=== PATIENT | male | born 1985 | race Caucasian/White ===

== ENCOUNTER 2022-06-15 12:45 | Observation (INO) | payer MEDICAID, SELFPAY ==
[2022-06-15 12:46] VITALS: BP 147/96; PULSE 106; RESP 18; TEMP 36.3; O2SAT 94
--- NOTE | 2022-06-15 13:14 | EX.ED.SAOD ---
HPI History of Present Illness Chief Complaint: Substance Abuse Informant: patient Onset/Context/Timing Onset: Days (2) Context: Gradual Onset Timing: Continuous Quality: Shaky, anxious Location: Generalized Worsened by: Nothing Relieved by: Nothing Associated Symptoms Associated Symptoms: Positive for vomiting*; Negative for diarrhea*, fever*, rash*, seizure, tremor, palpatations, change in mental status, suicidal ideation or homicidal ideation Narrative Narrative: Patient presents requesting detox from heroin and methamphetamines. Patient states he has been using daily for a few weeks until a day and a half ago. Patient states he was having some nausea and vomiting after he had stopped using the heroin. Patient states he was injecting heroin and smoked some ice. Patient denies any seizures. Patient states he feels little shaky. Patient denies any fevers or chills. Patient denies any suicidal or homicidal ideations. Patient states he has been through detox in [place] in 2012. [facility] Medical History (Updated 06/15/22 @ 13:33 by Olivia Infante) Multiple substance abuse Medical History no medical history no medical history Home Medications buprenorphine 100 mg/0.5 mL solution,exten.rel.subcutaneous syringe (Sublocade) 100 mg subcut 06/15/22 [History Last Taken Unknown] clonidine HCl 0.1 mg tablet 0.1 mg PO TID PRN Anxiety 06/15/22 [History Last Taken Unknown] venlafaxine 150 mg capsule,extended release 24 hr 150 mg PO DAILY 06/15/22 [History Last Taken Unknown] Allergy/AdvReac Type Severity Reaction Status Date / Time No Known Allergies Allergy Verified 06/15/22 12:48 Surgical History (Updated 06/15/22 @ 13:[address] Elian Dickey MD) H/O inguinal hernia repair Surgical History no surgical history no surgical history Social History (Updated 06/15/22 @ 13:[address] Escobar Ramachandran DO) Smoking Status: Current every day smoker tobacco type: cigarettes substance use type: crack/cocaine, heroin and amphetamines ROS ROS ED Constitutional Constitutional ED: Denies chills or fever(s) Eyes Eyes: Denies blurry vision or change in vision ENT ENT ED: Denies rhinorrhea or sore throat Cardiovascular Cardiovascular: Denies chest pain or palpitations Respiratory/Chest Respiratory/Chest: Denies cough or dyspnea Gastrointestinal Gastrointestinal: Reports nausea and vomiting Genitourinary Genitourinary ED: Denies dysuria or hematuria Musculoskeletal Musculoskeletal: Denies back pain or neck pain Integumentary Denies abscess or rash Neurologic Neurologic: Denies headache(s) or weakness Allergic/Immunologic Allergic/Immunologic ED: Denies mouth swelling or urticaria EXAM Physical Exam Const Vital Signs: 06/15/22 12:46 Temperature 97.4 F L Temperature Source Temporal Pulse Rate 106 H Respiratory Rate 18 Blood Pressure 147/96 H Blood Pressure Mean 113 Pulse Ox 94 Oxygen Delivery Method Room Air Positive well nourished and well developed General Appearance ED: well developed and NAD HEENT Reports moist mucous membranes Neck supple and no JVD Resp normal respiratory effort and clear to auscultation bilaterally Cardio regular rate, regular rhythm and no murmurs GI normal to inspection, nondistended, normoactive bowel sounds and non-tender Palpation: soft Extremity normal to inspection General Extremety ED: Negative for edema or tenderness General Extremity: Negative for edema Neuro oriented x3, CN's II-XII intact bilaterally and no sensory deficits noted Sensorium / Orientation: alert Motor Exam: strength 5/5 throughout Psych mental status grossly normal Mood & Affect: anxious Skin no rashes or lesions noted MDM MDM MDM Narrative Medical decision making narrative: Differential diagnosis includes opiate withdrawal, polysubstance abuse, and amphetamine withdrawal. Basic labs will be obtained. CBC will be obtained to assess for leukocytosis and anemia. Basic metabolic profile will be obtained to assess for electrolyte abnormality and renal function. Urine drug screen will be obtained to assess for polysubstance abuse. Serum alcohol level will be obtained to assess for alcohol intoxication. Case was discussed with the hospitalist. He will admit the patient to his service. Patient understood and was agreeable with the plan. All questions were answered. Management Discussion w/another healthcare provider: Hospitalist (Dr. Dickey) Discharge Plan Dx/Rx/DC Orders Clinical Impression: Opiate withdrawal, Substance abuse Disposition Disposition: Acute Care Hospital [facility]
--- NOTE | 2022-06-15 13:39 | PCM.HP.STD ---
HPI - General General Date of Admission: 06/15/22 HPI Narrative CHRISTIAN HALL, is a 36 M who presents to the hospital requesting detox from heroin, cocaine, and meth. His last use was a day and a half ago and he relapsed after 10 months of being clean for those months were while he was in detention in the last 6 were while he was at a half-way house. He started using again 2-1/2 weeks ago because he lost his job. He does see an outpatient counselor for his drug use and that is who recommended he come in here for detox. [facility] Medical History (Updated 06/15/22 @ 13:33 by Olivia Infante) Multiple substance abuse Medical History no medical history Home Medications buprenorphine 100 mg/0.5 mL solution,exten.rel.subcutaneous syringe (Sublocade) 100 mg subcut 06/15/22 [History Last Taken Unknown] clonidine HCl 0.1 mg tablet 0.1 mg PO TID PRN Anxiety 06/15/22 [History Last Taken Unknown] venlafaxine 150 mg capsule,extended release 24 hr 150 mg PO DAILY 06/15/22 [History Last Taken Unknown] Allergy/AdvReac Type Severity Reaction Status Date / Time No Known Allergies Allergy Verified 06/15/22 12:48 other (His mother when he was young and he is estranged from the rest of his family) Surgical History (Updated 06/15/22 @ 13:[address] Elian Dickey MD) H/O inguinal hernia repair Surgical History no surgical history Social History (Updated 06/15/22 @ 13:[address] Escobar Ramachandran, ) Smoking Status: Current every day smoker tobacco type: cigarettes substance use type: crack/cocaine, heroin and amphetamines ROS Constitutional Constitutional: Denies chills, fatigue, fever(s) or malaise Eyes Eyes: Denies blurry vision ENT HEENT: Denies headache(s) or nasal discharge Cardiovascular Cardiovascular: Denies chest pain, dyspnea on exertion or syncope Respiratory/Chest Respiratory/Chest: Denies cough, shortness of breath at rest or shortness of breath with exertion Gastrointestinal Gastrointestinal: Reports nausea and vomiting; Denies constipation or diarrhea Genitourinary Genitourinary: Denies dysuria Neurologic Neurologic: Denies focal weakness, numbness or tremor(s) Psychiatric Psychiatric: Reports anxiety; Denies depression Vital Signs Vital Signs Vital Signs: 06/15/22 12:46 Temperature 97.4 F L Temperature Source Temporal Pulse Rate 106 H Respiratory Rate 18 Blood Pressure 147/96 H Blood Pressure Mean 113 Pulse Ox 94 Oxygen Delivery Method Room Air Physical Exam Narrative General: Alert, Oriented x3, Cooperative, No apparent distress HEENT: Atraumatic, PERRLA, EOMI, Normocephalic Oral: Moist Mucosa Neck: Supple, No JVD Lungs: Clear to auscultation, Normal air movement, No rhonchi, No wheeze, No rales Cardiovascular: Tachycardic, Regular Rhythm, Normal S1, Normal S2, No murmurs Abdomen: Soft, Non Tender, Non-Distended, No Hepato-splenomegaly Extremities: No edema, Capillary Refill Less than 3 Seconds Skin: No rashes, No breakdown Musculoskeletal: No Tenderness to Palpation of Joints or Extremities Neurological: Cranial nerves II-XII grossly intact, Motor Exam 5/5 strength throughout, Sensory exam intact to light touch and pain Psych/Mental Status: Anxious, restless, cannot sit still Assessment & Plan Assessment/Plan (1) Opiate withdrawal: (2) Substance abuse: PLAN: Plan 1. Opiate withdrawal/polysubstance abuse/tobacco abuse/anxiety/depression ? We will continue with the opiate withdrawal protocol ? We will obtain a CMP to see if any further investigation is warranted ? We will continue with his home Effexor ? We will have him see 180 to establish outpatient care ? Discussed tobacco cessation, will provide a nicotine patch DVT: Ambulation Charges/Coding Visit Charges Inpatient E&M: 81282 Init Hosp L2
--- NOTE | 2022-06-15 13:54 | NURSING ---
communicated with ER charge nurse via backline to see if were sending any labs as none pending, noted ER physician's and hospitalist notes. ER Charge nurse replied hospitalist did not want any.
--- NOTE | 2022-06-15 14:01 | CM.ED ---
Social Work SW introduced self and role. Patient reports he would like to complete detox. Patient reports he had been clean for 8 months but relapsed. Pt reports his counselor from [facility] in [place] sent him here. Hollie, [facility] coordinator, notified that patient to be admitted to the floor. Tahira Weston MANAGER BENEFIT, [employer]
[2022-06-15 14:41] VITALS: BP 125/59; PULSE 100; RESP 18; TEMP 36.4; O2SAT 97
[2022-06-15 14:42] VITALS: BMI 32.5
[2022-06-15 15:14] VITALS: BMI 32.5
[2022-06-15] MEDS: Methocarbamol 750 MG Tablet 1500 MG PO (15:30)
[2022-06-15] MEDS: Ondansetron 8 MG Tablet PO (15:30)
[2022-06-15] MEDS: Gabapentin 300 MG Capsule PO (15:30)
[2022-06-15] MEDS: Buprenorphine HCl 2 MG TAB.SUBL SL ×2 (15:31→23:51)
[2022-06-15 23:44] VITALS: BP 109/69; PULSE 60; RESP 16; TEMP 36.3; O2SAT 97
[2022-06-16 02:38] VITALS: BP 111/65; PULSE 62; RESP 16; TEMP 36.3; O2SAT 97
[2022-06-16 06:33] VITALS: BP 113/67; PULSE 66; O2SAT 99
[2022-06-16] MEDS: Buprenorphine HCl 2 MG TAB.SUBL SL ×3 (06:34→23:02)
[2022-06-16] MEDS: cloNIDine HCl 0.1 MG Tablet PO ×2 (06:35→20:20)
[2022-06-16 08:10] LABS: ALB/GLOB Ratio 0.8 RATIO (0.9-2.4); AST(SGOT) 51 U/L (15-37); Alanine Aminotransfer ALT/SGPT 60 U/L (16-61); Albumin, Serum 2.9 g/dL (3.2-5.0); Alkaline Phosphatase 61 U/L (45-117); Anion Gap 5 (5-15); BUN 13 mg/dL (7-18); BUN/Creat Ratio 18.3 RATIO (10-20); Calcium,Total 8.8 mg/dL (8.5-10.1); Chloride 110 mmol/L (98-107); Creatinine, Serum 0.71 mg/dL (0.70-1.30); EST Glomerular Filtration Rate 132 mL/min (>60); Est Glom Filt Rate - Afr Amer 160 mL/min (>60); Estimated Creatinine Clearance 142.45 ml/min; Globulin 3.5 g/dL (2.2-4.2); Glucose 92 mg/dL (74-106); Potassium 4.2 mmol/L (3.5-5.1); Protein, Total 6.4 g/dL (6.4-8.2); Sodium Level 139 mmol/L (136-145)
[2022-06-16 08:38] VITALS: BP 120/77; PULSE 68; RESP 18; TEMP 36.4; O2SAT 98
[2022-06-16] MEDS: Venlafaxine XR 150 MG Capsule PO (09:35)
--- NOTE | 2022-06-16 11:49 | PN.HOSP_ITS ---
Reason for Visit Reason for Visit: Diagnoses Opioid use, unspecified with withdrawal (06/15/22) Other psychoactive substance abuse, uncomplicated (06/15/22) Subjective Subjective Patient was seen and examined today, he was admitted yesterday for opiate withdrawal. Patient has no complaints of any muscle aches or severe anxiety today. He states he is a little bit jittery. Objective Data Objective Data Vital Signs: Vital Signs Temp Pulse Resp BP Pulse Ox O2 Del Method 97.6 F L 68 18 120/77 98 Room Air 06/16/22 08:38 06/16/22 08:38 06/16/22 08:38 06/16/22 08:38 06/16/22 08:38 06/16/22 08:38 Oxygen Delivery Method Room Air Weight: 99.79 kg Body Mass Index (BMI) 32.5 Intake & Output: Intake and Output for Last 24 Hours 06/14/22 06/15/22 06/16/22 23:59 23:59 23:59 Intake Total 500 / 500 Balance 500 / 500 Lab / Micro Data Result Diagrams: 06/16/22 06:15 Labs: Laboratory Results - last 24 hr 06/16/22 06:15: Sodium 139, Potassium 4.2, Chloride 110 H, Carbon Dioxide 24.0, Anion Gap 5, BUN 13, Creatinine 0.71, Estim Creat Clear Calc 142.45, Est GFR (MDRD) Af Amer 160, Est GFR (MDRD) Non-Af 132, BUN/Creatinine Ratio 18.3, Glucose 92, Calcium 8.8, Total Bilirubin 0.20, AST 51 H, ALT 60, Alkaline Phosphatase 61, Total Protein 6.4, Albumin 2.9 L, Globulin 3.5, Albumin/Globulin Ratio 0.8 L Physical Exam Const alert, oriented x3, no apparent distress and average body habitus General Appearance: cooperative, well kempt and well developed Orientation / Consciousness: awake, oriented to person, oriented to place and oriented to time HEENT normocephalic, head/scalp atraumatic and moist oral mucous membranes Eyes PERRL, EOMs intact bilaterally and conjunctivae normal Neck supple, no JVD, thyroid normal and no carotid bruits General: trachea midline Resp normal respiratory effort, no retractions, no use of accessory muscles and clear to auscultation bilaterally Auscultation: Negative for rales, rhonchi or wheezes Cardio regular rate, regular rhythm, S1 normal heart sound, S2 normal heart sound, no murmurs, no rub and no gallops GI normal to inspection, nondistended, normoactive bowel sounds, soft to palpation, non-tender and non-distended Extremity no clubbing, cyanosis or edema Skin no rashes or lesions noted General Skin Exam: no breakdown Neuro oriented x3, CN's II-XII intact bilaterally, moves all extremities, no focal motor deficits and no sensory deficits noted Sensorium / Orientation: awake and alert Speech: speech normal Psych affect normal Assessment & Plan Assessment/Plan (1) Opiate withdrawal: PLAN: Plan 1. 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
--- NOTE | 2022-06-16 14:36 | ADDICTION ---
This medical technical writer met with PT to conduct ASAM, MSE, AUDIT assessments and to plan for d/c. PT A+Ox4 and participated actively. All assessments completed and placed in PT's chart. PT plans to f/u with [facility] for follow-up outtreatment services. PT did not indicate a need for transportation post d/c from [facility].
[2022-06-16 14:38] VITALS: BP 114/72; PULSE 68; RESP 16; TEMP 36.1; O2SAT 98
[2022-06-16 20:13] VITALS: BP 141/83; PULSE 99; RESP 18; TEMP 36.6; O2SAT 99
[2022-06-17 02:53] VITALS: BP 117/74; PULSE 60; RESP 18; TEMP 36.6; O2SAT 98
[2022-06-17] MEDS: Methocarbamol 750 MG Tablet 1500 MG PO ×2 (02:59→17:33)
[2022-06-17] MEDS: Dicyclomine 10 MG Capsule 20 MG PO (02:59)
[2022-06-17] MEDS: Ondansetron 8 MG Tablet PO (03:00)
[2022-06-17] MEDS: Buprenorphine HCl 2 MG TAB.SUBL SL ×2 (06:26→15:12)
[2022-06-17 08:45] VITALS: BP 128/72; PULSE 64; RESP 18; TEMP 36.7; O2SAT 99
[2022-06-17] MEDS: Venlafaxine XR 150 MG Capsule PO (10:16)
[2022-06-17] MEDS: cloNIDine HCl 0.1 MG Tablet PO (13:28)
--- NOTE | 2022-06-17 13:47 | PN.HOSP_ITS ---
Reason for Visit Reason for Visit: Diagnoses Opioid use, unspecified with withdrawal (06/15/22) Other psychoactive substance abuse, uncomplicated (06/15/22) Subjective Subjective Patient was seen and examined today, he states he is going to do an outpatient detox program. Patient complains of some slight nervousness but nothing major. Objective Data Objective Data Vital Signs: Vital Signs Temp Pulse Resp BP Pulse Ox O2 Del Method 98.0 F 64 18 128/72 H 99 Room Air 06/17/22 08:45 06/17/22 08:45 06/17/22 08:45 06/17/22 08:45 06/17/22 08:45 06/17/22 08:45 Oxygen Delivery Method Room Air Weight: 99.79 kg Body Mass Index (BMI) 32.5 Intake & Output: Intake and Output for Last 24 Hours 06/15/22 06/16/22 06/17/22 23:59 23:59 23:59 Intake Total 1942039 600 / 600 Balance 1942039 600 / 600 Lab / Micro Data Result Diagrams: 06/16/22 06:15 Physical Exam Const alert, oriented x3, no apparent distress and average body habitus General Appearance: cooperative, well kempt and well developed Orientation / Consciousness: awake, oriented to person, oriented to place and oriented to time HEENT normocephalic and moist oral mucous membranes Eyes PERRL, EOMs intact bilaterally and conjunctivae normal Neck supple, no JVD, thyroid normal and no carotid bruits General: trachea midline Resp normal respiratory effort, no retractions, no use of accessory muscles and clear to auscultation bilaterally Auscultation: Negative for rales, rhonchi or wheezes Cardio regular rate, regular rhythm, S1 normal heart sound, S2 normal heart sound, no murmurs, no rub and no gallops GI normal to inspection, nondistended, normoactive bowel sounds, soft to palpation, non-tender and non-distended Extremity no clubbing, cyanosis or edema Skin no rashes or lesions noted General Skin Exam: no breakdown Neuro oriented x3, CN's II-XII intact bilaterally, moves all extremities, no focal motor deficits and no sensory deficits noted Sensorium / Orientation: awake, alert, oriented to person, oriented to place and oriented to time Speech: speech normal Psych Psych Narrative: Patient has flat affect Assessment & Plan Assessment/Plan (1) Opiate withdrawal: PLAN: Plan 1. Acute opiate withdrawal-patient will continue on his present medications, patient is minimally symptomatic from opiate withdrawal #2 polysubstance abuse-complicates care, medical course, management, and recovery #3 chronic depression-patient will remain on his Effexor Total clinical time spent by myself addressing the patient's medical issues, rev iewing all his data, and collaborating with patient's care team: 25 minutes Charges/Coding Visit Charges Inpatient E&M: 10436 Subs Hosp L1
[2022-06-17 14:32] VITALS: BP 115/54; PULSE 63; RESP 18; TEMP 36.6; O2SAT 95
[2022-06-17] MEDS: Gabapentin 300 MG Capsule PO (17:33)
[2022-06-17 20:47] VITALS: BP 146/85; PULSE 69; RESP 18; TEMP 36.6; O2SAT 97
[2022-06-18 02:37] VITALS: BP 130/85; PULSE 61; RESP 18; TEMP 36.4; O2SAT 96
[2022-06-18] MEDS: Buprenorphine HCl 2 MG TAB.SUBL SL (02:44)
[2022-06-18] MEDS: cloNIDine HCl 0.1 MG Tablet PO ×3 (02:44→20:15)
[2022-06-18 08:40] VITALS: BP 152/96; PULSE 79; RESP 18; TEMP 37.2; O2SAT 100
[2022-06-18] MEDS: Venlafaxine XR 150 MG Capsule PO (08:40)
[2022-06-18] MEDS: Gabapentin 300 MG Capsule PO (08:40)
--- NOTE | 2022-06-18 11:36 | NURSING ---
Clonidine pulled from accu dose by this nurse. Computer in room would not let this nurse give medication. container washer came in room and tried to give it with me and it still wouldnt accept my fingerprint. Rozina samaniego RN gave medication under her name.
--- NOTE | 2022-06-18 12:59 | PCM.PN.HOSP ---
Reason for Visit Reason for Visit: Diagnoses Opioid use, unspecified with withdrawal (06/15/22) Other psychoactive substance abuse, uncomplicated (06/15/22) Subjective Subjective Patient was seen and examined today, he does not appear to be nervous or tremorous. He tells this examiner that he is going to do an outpatient detox program when he is released from the hospital. Objective Data Objective Data Vital Signs: Vital Signs Temp Pulse Resp BP Pulse Ox O2 Del Method 98.9 F 79 18 152/96 H 100 Room Air 06/18/22 08:40 06/18/22 08:40 06/18/22 08:40 06/18/22 08:40 06/18/22 08:40 06/18/22 08:40 Oxygen Delivery Method Room Air Weight: 99.79 kg Body Mass Index (BMI) 32.5 Intake & Output: Intake and Output for Last 24 Hours 06/16/22 06/17/22 06/18/22 23:59 23:59 23:59 Intake Total 1939 1200 / 1700 500 / 500 Balance 1939 1200 / 1700 500 / 500 Lab / Micro Data Result Diagrams: 06/16/22 06:15 Physical Exam Narrative alert, oriented x3, no apparent distress and average body habitus General Appearance: cooperative, well kempt and well developed Orientation / Consciousness: awake, oriented to person, oriented to place and oriented to time HEENT normocephalic and moist oral mucous membranes Eyes PERRL, EOMs intact bilaterally and conjunctivae normal Neck supple, no JVD, thyroid normal and no carotid bruits General: trachea midline Resp normal respiratory effort, no retractions, no use of accessory muscles and clear to auscultation bilaterally Auscultation: Negative for rales, rhonchi or wheezes Cardio regular rate, regular rhythm, S1 normal heart sound, S2 normal heart sound, no murmurs, no rub and no gallops GI normal to inspection, nondistended, normoactive bowel sounds, soft to palpation, non-tender and non-distended Extremity no clubbing, cyanosis or edema Skin no rashes or lesions noted General Skin Exam: no breakdown Neuro oriented x3, CN's II-XII intact bilaterally, moves all extremities, no focal motor deficits and no sensory deficits noted Sensorium / Orientation: awake, alert, oriented to person, oriented to place and oriented to time Speech: speech normal Psych Psych Narrative: Patient has flat affect Assessment & Plan Assessment/Plan (1) Opiate withdrawal: PLAN: Plan 1. Acute opiate withdrawal-patient will continue on his present medications, patient is minimally symptomatic from opiate withdrawal, there may be a possibility the patient could be discharged tomorrow to follow-up with outpatient detox services. #2 polysubstance abuse-complicates care, medical course, management, and recovery #3 chronic depression-patient will remain on his Effexor Total clinical time spent by myself addressing the patient's medical issues, reviewing all his data, and collaborating with patient's care team: 25 minutes Charges/Coding Visit Charges Inpatient E&M: 56339 Subs Hosp L1
[2022-06-18 15:00] VITALS: BP 127/86; PULSE 69; RESP 18; TEMP 36.6; O2SAT 98
[2022-06-18 20:20] VITALS: BP 126/80; PULSE 67; RESP 16; TEMP 36.8; O2SAT 99
[2022-06-19 05:20] VITALS: BP 122/76; PULSE 62; RESP 16; TEMP 36.5; O2SAT 94
[2022-06-19 08:35] VITALS: BP 113/80; PULSE 86; RESP 18; TEMP 36.4; O2SAT 99
[2022-06-19] MEDS: Venlafaxine XR 150 MG Capsule PO (08:38)
[2022-06-19] MEDS: Gabapentin 300 MG Capsule PO (08:38)
--- NOTE | 2022-06-19 10:02 | PCM.DC ---
Discharge Instructions Diet Discharge Diet: No restrictions Follow Up Care Test Results: Test results from this visit will be discussed in further detail at your follow-up appointment, if applicable. Discharge Plan Admission Admit Date/Time: 06/15/22 13:38 Primary Reason for Your Visit: opiate withdrawal Attending Provider: Escobar Avila Primary Care Provider: Care Physician,No Primary Consulting Providers: Elian Dickey Mark Instructions Additional Instructions / Restrictions: Follow up with [facility] this week. Discharge Orders/Prescriptions Prescriptions: Continued clonidine HCl 0.1 mg tablet 0.1 mg PO TID PRN (Reason: Anxiety) Label Comments: TAKE 1 TABLET BY MOUTH THREE TIMES DAILY NEEDED venlafaxine 150 mg capsule,extended release 24hr 150 mg PO DAILY Label Comments: TAKE 1 CAPSULE BY MOUTH EVERY DAY Sublocade 100 mg/0.5 mL solution, extended rel syringe 100 mg SUBCUT Label Comments: Inject 1 syringe subcutaneously single dose Given per Vaibhav Shah CNP in [facility] Lot #[id number] Exp 03/31 Referrals / Follow Up: Care Physician,No Primary [Primary Care Provider] - NOT,DEFINED [Non-Staff] - Disposition Disposition (needs filled in before D/C Order can be placed): Home, Self Care
--- NOTE | 2022-06-19 10:05 | DS.PCM_ITS ---
Providers Date of Admission: 06/15/22 Primary Care Physician: Primary Care Phys Reason For Visit: OPIATE DETOX Diagnosis Discharge Diagnosis (1) Opiate withdrawal: Status: Acute Code(s): F11.93 - Opioid use, unspecified with withdrawal Medications at Discharge Home Medications buprenorphine 100 mg/0.5 mL solution,exten.rel.subcutaneous syringe (Sublocade) 100 mg subcut 06/15/22 clonidine HCl 0.1 mg tablet 0.1 mg PO TID PRN Anxiety 06/15/22 venlafaxine 150 mg capsule,extended release 24 hr 150 mg PO DAILY Mood Stabilizer 06/15/22 Hospital Course Operations None Procedures None Summary of Care Provided Hospital Course: This is a 36-year-old male presenting with acute opiate withdrawal. Patient does take Sublocade, which is verified on [facility]. He takes that for opiate withdrawal. Patient presented here seeking detox treatment for heroin, cocaine and methamphetamines. Patient was on a buprenorphine taper which he completed on the . Overnight last night, patient felt well and had no events. Patient is planning on following up with [facility]. Physical Exam Const alert and no apparent distress HEENT normocephalic and head/scalp atraumatic Eyes Eyes Narrative: no icterus. Weight / BMI Weight Weight: 99.79 kg Body Mass Index (BMI) 32.5 ABG / Lab / Microbiology Data Result Diagrams: 06/16/22 06:15 D/C Instructions Discharge Diet: No restrictions Meaningful Use Info Meaningful Use Diagnoses (Choose all that apply): None applicable Discharge Plan Admission Admit Date/Time: 06/15/22 13:38 Primary Reason for Your Visit: opiate withdrawal Attending Provider: Escobar Avila Primary Care Provider: Care Physician,No Primary Consulting Providers: Elian Dickey Mark Instructions Additional Instructions / Restrictions: Follow up with [facility] this week. Discharge Orders/Prescriptions Prescriptions: Continued clonidine HCl 0.1 mg tablet 0.1 mg PO TID PRN (Reason: Anxiety) Label Comments: TAKE 1 TABLET BY MOUTH THREE TIMES DAILY NEEDED venlafaxine 150 mg capsule,extended release 24hr 150 mg PO DAILY Label Comments: TAKE 1 CAPSULE BY MOUTH EVERY DAY Sublocade 100 mg/0.5 mL solution, extended rel syringe 100 mg SUBCUT Label Comments: Inject 1 syringe subcutaneously single dose Given per Vaibhav Shah CNP in [facility] Lot #[id number] Exp 03/31 Referrals / Follow Up: Care Physician,No Primary [Primary Care Provider] - NOT,DEFINED [Non-Staff] - Disposition Disposition (needs filled in before D/C Order can be placed): Home, Self Care Charges/Coding Visit Charges Inpatient E&M: 05639 Disch Hosp
--- NOTE | 2022-06-19 11:13 | PHA.DC.MR ---
Pharmacy Service has performed discharge medication reconciliation for this patient. The patient's discharge medication list was reviewed for discrepancies and discrepancies were resolved. Home Medications buprenorphine 100 mg/0.5 mL solution,exten.rel.subcutaneous syringe (Sublocade) 100 mg subcut 06/15/22 clonidine HCl 0.1 mg tablet 0.1 mg PO TID PRN Anxiety 06/15/22 venlafaxine 150 mg capsule,extended release 24 hr 150 mg PO DAILY Mood Stabilizer 06/15/22
[2022-06-19 12:29] VITALS: BP 151/100; PULSE 72; RESP 18; TEMP 36.6; O2SAT 100
== END 2022-06-19 12:59 | disposition home or self-care (01) | DRG 773 ==
LOC: ED 13:31 → MS3 13:56
PROVIDERS: Admitting Provider Family Medicine; Emergency Provider Emergency Medicine
DX: F11.23 Opioid dependence with withdrawal (principal); F15.23 Other stimulant dependence with withdrawal; F14.10 Cocaine abuse, uncomplicated; F17.210 Nicotine dependence, cigarettes, uncomplicated; F32.A Depression, unspecified; Z79.899 Other long term (current) drug therapy
CPT/HCPCS: 36415; 80053; 99221; 99281; G0378

== ENCOUNTER 2022-07-04 16:33 | Inpatient (IN) | payer MEDICAID, SELFPAY ==
[2022-07-04 16:34] VITALS: BP 124/105; PULSE 114; RESP 20; TEMP 37.2; O2SAT 98; BMI 32.5
[2022-07-04 17:21] LABS: Absolute Lymphocyte Count 0.95 X10^3/uL (0.83-4.51); Absolute Neutrophil Count 5.3 X10^3/uL (2.0-7.7); Basophil# 0.01 X10^3/uL; Basophil% 0.2 % (0-1); Eosinophil# 0.08 X10^3/uL; Eosinophils% 1.2 % (0-5); Hematocrit 39.4 % (40-54); Hemoglobin 12.3 g/dL (13.0-16.5); Lymphocyte # 0.95 X10^3/ul (0.83-4.51); Lymphocyte % 14.6 % (19-41); Mean Corp Hgb Conc 31.2 g/dL (32-36); Mean Corpuscular Hgb 26.3 pg (27.0-32.0); Mean Corpuscular Volume 84.4 fL (80-94); Monocyte# 0.18 X10^3/uL; Monocyte% 2.8 % (0-10); NRBC Flagged by Analyzer 0 % (0-5); Neutrophil # 5.26 X10^3/uL (2.7-7.7); Neutrophil % 80.9 % (47-70); Platelet Count 230 K/mm3 (150-450); RBC Distribution Width CV 14.4 % (11.6-14.6); Red Blood Count 4.67 M/mm3 (4.6-6.2); White Blood Count 6.5 K/mm3 (4.4-11.0)
--- NOTE | 2022-07-04 17:30 | EX.ED.SAOD ---
HPI History of Present Illness Chief Complaint: Substance Abuse Narrative Narrative: 36-year-old male presenting for detox from heroin. He states he also uses ice, crack. He states he will use anything in his hands on. He states he last detoxed about a month ago. He states he went home with the wrong mindset and got back into drugs. He states his last use of heroin was yesterday. PFSH PFS Medical History Multiple substance abuse Substance abuse Home Medications buprenorphine 100 mg/0.5 mL solution,exten.rel.subcutaneous syringe (Sublocade) 100 mg subcut 06/15/22 [History Last Taken Unknown] clonidine HCl 0.1 mg tablet 0.1 mg PO TID PRN Anxiety 06/15/22 [History Last Taken Unknown] venlafaxine 150 mg capsule,extended release 24 hr 150 mg PO DAILY Mood Stabilizer 06/15/22 [History Last Taken 06/15/22 09:00] Allergy/AdvReac Type Severity Reaction Status Date / Time No Known Allergies Allergy Verified 07/04/22 16:36 Surgical History H/O inguinal hernia repair Social History Smoking Status: Current every day smoker tobacco type: cigarettes substance use type: crack/cocaine, heroin and amphetamines ROS ROS ED Constitutional Constitutional ED: Denies chills, fever(s) or sweats Eyes Eyes: Denies blurry vision or change in vision ENT ENT ED: Denies ear pain or sore throat Cardiovascular Cardiovascular: Denies chest pain, palpitations or racing heartbeat Respiratory/Chest Respiratory/Chest: Denies cough, dyspnea or sputum Gastrointestinal Gastrointestinal: Denies abdominal pain, constipation, diarrhea, nausea or vomiting Genitourinary Genitourinary ED: Denies dysuria, hematuria or urinary frequency Musculoskeletal Musculoskeletal: Denies arthralgias, myalgias or neck pain Integumentary Denies abscess, Abrasions or rash Neurologic Neurologic: Denies headache(s), paresthesias or weakness Psychiatric Psychiatric: Denies anxiety, depression, suicidal ideation or suicidal thoughts Endocrine Endocrinology: Denies polydipsia or polyuria EXAM Physical Exam Const Vital Signs: 07/04/22 16:34 Temperature 98.9 F Temperature Source Temporal Pulse Rate 114 H Respiratory Rate 20 H Blood Pressure 124/105 H Blood Pressure Mean 111 Pulse Ox 98 Oxygen Delivery Method Room Air Positive well nourished General Appearance ED: NAD; Negative for pallor HEENT Reports moist mucous membranes Resp normal respiratory effort and clear to auscultation bilaterally Cardio regular rate Rate: tachycardic Neuro oriented x3 and CN's II-XII intact bilaterally Sensorium / Orientation: alert Psych mental status grossly normal and thought process normal Skin General Skin Exam: Negative for pallor MDM MDM MDM Narrative Medical decision making narrative: Presenting for detox. He states he does do multiple drugs but wants detox for fentanyl. He states his last use of heroin was yesterday. Screening labs will be obtained. CBC and CMP unremarkable. Urine drug screen is pending. I was told that the alcohol level will be delayed because the machine is not working. Discussed with hospitalist for admission. Impression: 1. Polysubstance abuse 2. Presentation for opioid detox Lab Data Labs: Laboratory Results - last 24 hr 07/04/22 07/04/22 17:03 17:03 WBC 6.5 RBC 4.67 Hgb 12.3 L Hct 39.4 L MCV 84.4 MCH 26.3 L MCHC 31.2 L RDW Std Deviation 44.0 H RDW Coeff of Ignacia 14.4 Plt Count 230 MPV 12.0 Immature Gran % (Auto) 0.300 Neut % (Auto) 80.9 H Lymph % (Auto) 14.6 L [place] % (Auto) 2.8 Eos % (Auto) 1.2 Baso % (Auto) 0.2 Absolute Neuts (auto) 5.3 Absolute Lymphs (auto) 0.95 Nucleated RBC % 0 Sodium 140 Potassium 4.2 Chloride 107 Carbon Dioxide 26.0 Anion Gap 7 BUN 10 Creatinine 0.87 Estim Creat Clear Calc 116.25 Est GFR (MDRD) Af Amer 126 Est GFR (MDRD) Non-Af 104 BUN/Creatinine Ratio 11.4 Glucose 117 H Calcium 9.0 Total Bilirubin 0.70 AST 53 H ALT 70 H Alkaline Phosphatase 83 Total Protein 7.2 Albumin 2.9 L Globulin 4.3 H Albumin/Globulin Ratio 0.7 L Discharge Plan Triage Chief Complaint: Substance Abuse ED Provider: Dieter Horton Dx/Rx/DC Orders Prescriptions: No Action clonidine HCl 0.1 mg tablet 0.1 mg PO TID PRN (Reason: Anxiety) Label Comments: TAKE 1 TABLET BY MOUTH THREE TIMES DAILY NEEDED venlafaxine 150 mg capsule,extended release 24hr 150 mg PO DAILY Label Comments: TAKE 1 CAPSULE BY MOUTH EVERY DAY Sublocade 100 mg/0.5 mL solution, extended rel syringe 100 mg SUBCUT Label Comments: Inject 1 syringe subcutaneously single dose Given per Vaibhav Shah CNP in RU Lot #[id number] Exp 03/31 Primary Care Provider: Care Physician,No Primary Referrals: Care Physician,No Primary [Primary Care Provider] -
[2022-07-04 17:40] LABS: ALB/GLOB Ratio 0.7 RATIO (0.9-2.4); AST(SGOT) 53 U/L (15-37); Alanine Aminotransfer ALT/SGPT 70 U/L (16-61); Albumin, Serum 2.9 g/dL (3.2-5.0); Alkaline Phosphatase 83 U/L (45-117); Anion Gap 7 (5-15); BUN 10 mg/dL (7-18); BUN/Creat Ratio 11.4 RATIO (10-20); Chloride 107 mmol/L (98-107); Creatinine, Serum 0.87 mg/dL (0.70-1.30); EST Glomerular Filtration Rate 104 mL/min (>60); Est Glom Filt Rate - Afr Amer 126 mL/min (>60); Estimated Creatinine Clearance 116.25 ml/min; Globulin 4.3 g/dL (2.2-4.2); Glucose 117 mg/dL (74-106); Potassium 4.2 mmol/L (3.5-5.1); Protein, Total 7.2 g/dL (6.4-8.2); Sodium Level 140 mmol/L (136-145)
--- NOTE | 2022-07-04 19:08 | HP.PCM_ITS ---
HPI - General General Date of Admission: 07/04/22 Date of Service: 07/04/22 Chief Complaint: Polysubstance abuse HPI Narrative CHRISTIAN HALL, is a 36 M with a history of polysubstance abuse including heroin, methamphetamines and crack cocaine and who presents to the emergency department today desiring sobriety and detoxification. Currently on long-acting buprenorphine outpatient treatment. Asked about multiple skin lesions noted and patient admitting that he skin pops. [facility] Medical History (Updated 07/04/22 @ 19:[address] Bennie Hutchinson MD) Multiple substance abuse Substance abuse Home Medications buprenorphine 100 mg/0.5 mL solution,exten.rel.subcutaneous syringe (Sublocade) 100 mg subcut 06/15/22 [History Last Taken Unknown] clonidine HCl 0.1 mg tablet 0.1 mg PO TID PRN Anxiety 06/15/22 [History Last Taken Unknown] venlafaxine 150 mg capsule,extended release 24 hr 150 mg PO DAILY Mood Stabilizer 06/15/22 [History Last Taken 06/15/22 09:00] Allergy/AdvReac Type Severity Reaction Status Date / Time No Known Allergies Allergy Verified 07/04/22 16:36 Surgical History H/O inguinal hernia repair Social History Smoking Status: Current every day smoker tobacco type: cigarettes substance use type: crack/cocaine, heroin and amphetamines ROS ROS Narrative Does not report any chest pain or shortness of breath. All other systems reviewed and essentially negative as above in the body of the history. Vital Signs Vital Signs Vital Signs: 07/04/22 16:34 Temperature 37.2 C Temperature Source Temporal Pulse Rate 114 H Respiratory Rate 20 H Blood Pressure 124/105 H Blood Pressure Mean 111 Pulse Ox 98 Oxygen Delivery Method Room Air Weight Weight: 99.836 kg Body Mass Index (BMI) 32.5 Physical Exam Narrative General exam. Young man, nontoxic-appearing, lethargic, somnolent, not in any obvious distress HEENT. Oral mucosa moist no pallor or jaundice Neck. Neck is supple Heart. First and second heart sounds heard no murmurs Lungs. Clear to auscultation Extremities. Multiple erythematous nodules, scabs and healing wounds on both extremities both upper and lower. ANALYTICAL LEAD. Conscious alert and oriented x3. Cranial nerves II through XII grossly intact Abdomen. Moves with respiration. All other organ systems normal on examination. Results Lab / Micro Data Result Diagrams: 07/04/22 17:03 07/04/22 17:03 Labs: Laboratory Results - last 24 hr 07/04/22 17:03: WBC 6.5, RBC 4.67, Hgb 12.3 L, Hct 39.4 L, MCV 84.4, MCH 26.3 L, MCHC 31.2 L, RDW Std Deviation 44.0 H, RDW Coeff of Ignacia 14.4, Plt Count 230, MPV 12.0, Immature Gran % (Auto) 0.300, Neut % (Auto) 80.9 H, Lymph % (Auto) 14.6 L, [place] % (Auto) 2.8, Eos % (Auto) 1.2, Baso % (Auto) 0.2, Absolute Neuts (auto) 5.3, Absolute Lymphs (auto) 0.95, Nucleated RBC % 0 07/04/22 17:03: Sodium 140, Potassium 4.2, Chloride 107, Carbon Dioxide 26.0, Anion Gap 7, BUN 10, Creatinine 0.87, Estim Creat Clear Calc 116.25, Est GFR (MDRD) Af Amer 126, Est GFR (MDRD) Non-Af 104, BUN/Creatinine Ratio 11.4, Glucose 117 H, Calcium 9.0, Total Bilirubin 0.70, AST 53 H, ALT 70 H, Alkaline Phosphatase 83, Total Protein 7.2, Albumin 2.9 L, Globulin 4.3 H, Albumin/Globulin Ratio 0.7 L Assessment & Plan Assessment/Plan (1) Multiple substance abuse: PLAN: Plan Assessment and plan 1. Polysubstance abuse most notably with heroin and methamphetamine and crack cocaine. Patient to be admitted for detoxification. Consult school social worker to assist with this. Keep patient on CINA protocol. Keep on telemetry. Supportive care Charges/Coding Visit Charges Inpatient E&M: 95978 Init Hosp L2
[2022-07-04 19:23] LABS: Alcohol, Blood (Medical)-Serum < 3.0 mg/dL
[2022-07-04 20:19] VITALS: BP 143/78; PULSE 73; RESP 18; TEMP 36.6; O2SAT 98
[2022-07-04 20:33] VITALS: BMI 31.3
[2022-07-04 20:43] VITALS: BP 125/86; PULSE 81; RESP 16; TEMP 36.7; O2SAT 96
[2022-07-04] MEDS: traZODone 100 MG Tablet PO (20:59)
[2022-07-04] MEDS: Methocarbamol 750 MG Tablet 1500 MG PO (20:59)
[2022-07-04] MEDS: Dicyclomine 10 MG Capsule 20 MG PO (20:59)
[2022-07-04] MEDS: cloNIDine HCl 0.1 MG Tablet PO (20:59)
[2022-07-04] MEDS: hydrOXYzine PAM 25 MG Capsule 50 MG PO (20:59)
[2022-07-04] MEDS: Buprenorphine HCl 2 MG TAB.SUBL SL (20:59)
[2022-07-04] MEDS: Venlafaxine HCl 75 MG Tablet PO (23:22)
[2022-07-05] MEDS: Buprenorphine HCl 2 MG TAB.SUBL SL ×3 (05:11→21:47)
--- NOTE | 2022-07-05 07:45 | PN.HOSP_ITS ---
Reason for Visit Reason for Visit: Diagnoses Other psychoactive substance abuse, uncomplicated (07/04/22) Subjective Subjective Follow-up for polysubstance use disorder with withdrawal Objective Data Objective Data Vital Signs: Vital Signs Temp Pulse Resp BP Pulse Ox O2 Del Method 98.1 F 81 16 125/86 H 96 Room Air 07/04/22 20:43 07/04/22 20:43 07/04/22 20:43 07/04/22 20:43 07/04/22 20:43 07/04/22 20:43 Oxygen Delivery Method Room Air Weight: 212 lb 4.882 oz Body Mass Index (BMI) 31.3 Lab / Micro Data Result Diagrams: 07/04/22 17:03 07/04/22 17:03 Labs: Laboratory Results - last 24 hr 07/04/22 17:03: WBC 6.5, RBC 4.67, Hgb 12.3 L, Hct 39.4 L, MCV 84.4, MCH 26.3 L, MCHC 31.2 L, RDW Std Deviation 44.0 H, RDW Coeff of Ignacia 14.4, Plt Count 230, MPV 12.0, Immature Gran % (Auto) 0.300, Neut % (Auto) 80.9 H, Lymph % (Auto) 14.6 L, [place] % (Auto) 2.8, Eos % (Auto) 1.2, Baso % (Auto) 0.2, Absolute Neuts (auto) 5.3, Absolute Lymphs (auto) 0.95, Nucleated RBC % 0 07/04/22 17:03: Sodium 140, Potassium 4.2, Chloride 107, Carbon Dioxide 26.0, An ion Gap 7, BUN 10, Creatinine 0.87, Estim Creat Clear Calc 116.25, Est GFR (MDRD) Af Amer 126, Est GFR (MDRD) Non-Af 104, BUN/Creatinine Ratio 11.4, Glucose 117 H, Calcium 9.0, Total Bilirubin 0.70, AST 53 H, ALT 70 H, Alkaline Phosphatase 83, Total Protein 7.2, Albumin 2.9 L, Globulin 4.3 H, Albumin/Globulin Ratio 0.7 L 07/04/22 17:03: Ethyl Alcohol < 3.0 Physical Exam Narrative Seen and examined. Physical exam General: Drowsy, lethargy. Orientation cannot be ascertained. HEENT: Atraumatic, PERRLA, EOMI, Normocephalic Oral: Oral mucosa dry. No Gingival or Mucosal Lesions/ Ulcerations Neck: Supple, No JVD, Negative Carotid Bruits Lungs: Air entry diminished in bilateral lung bases. No crepitation/rhonchi Cardiovascular: Regular rate, Regular Rhythm, Normal S1, Normal S2, No murmurs Abdomen: Mild RUQ tenderness. Bowel Sounds Present, Soft, Non-Distended : No renal angle tenderness. No suprapubic tenderness. Extremities: No edema, Capillary Refill Less than 3 Seconds Skin: Multiple needle tracks in both upper extremities and lower legs. Skin popping/deposit of heroin mainly lower abdomen Musculoskeletal: No Tenderness to Palpation of Joints or Extremities Neurological: Cranial nerves II-XII grossly intact, DTR 2+/4 and Symmetrical Psych/Mental Status: Flat affect. Assessment & Plan Assessment/Plan (1) Multiple substance abuse: PLAN: Plan Assessment and plan 1. Acute heroin/opioid withdrawal syndrome with history of chronic opioid use disorder, dependence and tolerance: Patient uses opioids, IV heroin with methamphetamine. The patient was started on buprenorphine along with other adjunctive medications as needed for medical stabilization as per order set of opioid withdrawal syndrome. Patient also on trazodone, hydroxyzine, gabapentin as needed ordered. account manager trainee consulted. Patient was seen by Sascha and states that patient does skin popping with deposits of Heroine in his lower abdomen 2. Polysubstance use disorder with crack cocaine and methamphetamine: Quitting. 3. Chronic smoking/nicotine use disorder: On nicotine patch. Charges/Coding Visit Charges Inpatient E&M: 13104 Subs Hosp L2
[2022-07-05] MEDS: hydrOXYzine PAM 25 MG Capsule 50 MG PO (08:38)
[2022-07-05] MEDS: Dicyclomine 10 MG Capsule 20 MG PO (08:38)
[2022-07-05 09:00] VITALS: BP 113/58; PULSE 68; RESP 18; TEMP 36.4; O2SAT 97
--- NOTE | 2022-07-05 10:29 | ADDICTION ---
This financial writer met with PT to conduct ASAM, MSE, DUDIT assessments and to plan for d/c. PT A+Ox4 and participated actively. All assessments completed and placed in PT's chart. PT plans to f/u with [facility] for follow-up outtreatment services. PT did not indicate a need for transportation post d/c from [facility].
--- NOTE | 2022-07-05 13:32 | US_ITS ---
EXAM: US Abdomen Limited (quadrant) HISTORY: hepatitis/RUQ tenderness -- made npo 12:30 scan around 8:30 pm TECHNIQUE: US Abdomen Limited (quadrant) COMPARISON: None. LIMITATIONS: None. LIVER: The liver is enlarged with the right hepatic lobe measuring 17.8 cm and echogenicity. No surface nodularity. No discrete mass. No intrahepatic biliary ductal dilatation. Normal hepatopedal portal venous flow. GALLBLADDER: Gallbladder is normally distended. No shadowing gallstones or sludge. No gallbladder wall thickening. No pericholecystic fluid. Negative sonographic Erickson sign. EXTRAHEPATIC BILE DUCTS: Dilated CBD 7 mm. PANCREAS: Visualized portions within normal limits. AORTA/IVC: Visualized portions within normal limits. RIGHT KIDNEY: Normal. ASCITES: None. PLEURAL EFFUSIONS: None. OTHER: None. US/Abdomen Limited IMPRESSION: 1. Dilated CBD measuring 7 mm. 2. No shadowing gallstones. 3. Hepatomegaly. Electronically Signed: Mathieu Cervantes MD at 22:08 EDT ,
--- NOTE | 2022-07-05 13:41 | NURSING ---
Per ultrasound- pt is to be NPO until US is performed this evening (07/05) around 2030
[2022-07-05 14:43] VITALS: BP 128/66; PULSE 64; RESP 18; TEMP 36.8; O2SAT 95
[2022-07-05 22:10] VITALS: BP 137/92; PULSE 70; RESP 18; TEMP 36.4; O2SAT 98
[2022-07-05] MEDS: cloNIDine HCl 0.1 MG Tablet PO (22:21)
[2022-07-05] MEDS: traZODone 100 MG Tablet PO (22:21)
[2022-07-05] MEDS: Acetaminophen 325 MG Tablet 650 MG PO (22:21)
[2022-07-06 05:55] VITALS: BP 112/65; PULSE 62; RESP 16; TEMP 36.6; O2SAT 96
[2022-07-06] MEDS: Buprenorphine HCl 2 MG TAB.SUBL SL ×3 (05:59→21:21)
[2022-07-06] MEDS: Methocarbamol 750 MG Tablet 1500 MG PO (06:08)
[2022-07-06] MEDS: hydrOXYzine PAM 25 MG Capsule 50 MG PO (06:08)
[2022-07-06 10:28] VITALS: BP 118/65; PULSE 72; RESP 18; TEMP 36.6; O2SAT 96
--- NOTE | 2022-07-06 13:53 | PCM.PN.HOSP ---
Reason for Visit Reason for Visit: Diagnoses Other psychoactive substance abuse, uncomplicated (07/04/22) Objective Data Objective Data Vital Signs: Vital Signs Temp Pulse Resp BP Pulse Ox O2 Del Method 97.9 F 72 18 118/65 96 Room Air 07/06/22 10:28 07/06/22 10:28 07/06/22 10:28 07/06/22 10:28 07/06/22 10:28 07/06/22 10:28 Oxygen Delivery Method Room Air Weight: 212 lb 4.882 oz Body Mass Index (BMI) 31.3 Lab / Micro Data Result Diagrams: 07/04/22 17:03 07/04/22 17:03 Radiography Diagnostic Testing: Radiology Impression Abdomen Ultrasound 07/05/22 13:32 IMPRESSION: 1. Dilated CBD measuring 7 mm. 2. No shadowing gallstones. 3. Hepatomegaly. Electronically Signed: Mathieu Cervantes MD at 22:08 EDT , Physical Exam Narrative Overall there is improvement of pressures withdrawal symptoms including restlessness anxiety. Patient is more talking and conversant. Seen and examined. Physical exam General: Alert, awake, oriented x3. HEENT: Atraumatic, PERRLA, EOMI, Normocephalic Oral: Oral mucosa dry. No Gingival or Mucosal Lesions/ Ulcerations Neck: Supple, No JVD, Negative Carotid Bruits Lungs: Air entry diminished in bilateral lung bases. No crepitation/rhonchi Cardiovascular: Regular rate, Regular Rhythm, Normal S1, Normal S2, No murmurs Abdomen: Mild RUQ tenderness. Bowel Sounds Present, Soft, Non-Distended : No renal angle tenderness. No suprapubic tenderness. Extremities: No edema, Capillary Refill Less than 3 Seconds Skin: Multiple needle tracks in both upper extremities and lower legs. Skin popping/deposit of heroin mainly lower abdomen Musculoskeletal: No Tenderness to Palpation of Joints or Extremities Neurological: Cranial nerves II-XII grossly intact, DTR 2+/4 and Symmetrical Psych/Mental Status: Flat affect. Assessment & Plan Assessment/Plan (1) Multiple substance abuse: PLAN: Plan Assessment and plan 1. Acute heroin/opioid withdrawal syndrome with history of chronic opioid use disorder, dependence and tolerance: Patient uses opioids, IV heroin with methamphetamine. The patient was started on buprenorphine along with other adjunctive medications as needed for medical stabilization as per order set of opioid withdrawal syndrome. Patient also on trazodone, hydroxyzine, gabapentin as needed ordered. environmental programs manager consulted. Patient was seen by Sascha and states that patient does skin popping with deposits of Heroine in his lower abdomen 07/06: Withdrawal symptoms improving. No hallucination, seizure or nightmare. Mild tremor. Continue medication. 2. Polysubstance use disorder with crack cocaine and methamphetamine: Quitting. 3. Chronic smoking/nicotine use disorder: On nicotine patch. Charges/Coding Visit Charges Inpatient E&M: 44223 Subs Hosp L2
[2022-07-06 16:03] VITALS: BP 121/69; PULSE 84; RESP 18; TEMP 36.7; O2SAT 98
[2022-07-06 21:16] VITALS: BP 124/84; PULSE 91; RESP 18; TEMP 36.9; O2SAT 95
[2022-07-06 22:45] VITALS: BP 120/64; PULSE 79
[2022-07-06] MEDS: cloNIDine HCl 0.1 MG Tablet PO (22:46)
[2022-07-06] MEDS: traZODone 100 MG Tablet PO (22:46)
[2022-07-07 05:33] VITALS: BP 126/80; PULSE 75; RESP 16; TEMP 36.6; O2SAT 100
[2022-07-07] MEDS: Buprenorphine HCl 2 MG TAB.SUBL SL (08:48)
[2022-07-07] MEDS: Gabapentin 300 MG Capsule PO (08:59)
[2022-07-07] MEDS: Venlafaxine HCl 75 MG Tablet PO (08:59)
[2022-07-07] MEDS: hydrOXYzine PAM 25 MG Capsule 50 MG PO (08:59)
[2022-07-07 09:01] VITALS: BP 106/65; PULSE 90; RESP 16; TEMP 36.9; O2SAT 98
--- NOTE | 2022-07-07 09:18 | DCINST_ITS ---
Discharge Instructions Diet Discharge Diet: No restrictions Activity Discharge Activity: Return to Normal Activity Dressing / Incision Call your doctor if you observe: Fever of 101 or Higher, Shortness of breath, Dizziness, Fainting spells, Swelling in the ankles, Chest pain and Increased palpitations (irregular heartbeat) Follow Up Care Test Results: Test results from this visit will be discussed in further detail at your follow- up appointment, if applicable. Discharge Plan Admission Admit Date/Time: 07/04/22 19:00 Attending Provider: Elian Dickey Primary Care Provider: Sunita Braxton, Primary Consulting Providers: Bennie Hutchinson ; Preet Pedraza Discharge Orders/Prescriptions Prescriptions: Continued clonidine HCl 0.1 mg tablet 0.1 mg PO TID PRN (Reason: Anxiety) Label Comments: TAKE 1 TABLET BY MOUTH THREE TIMES DAILY NEEDED venlafaxine 150 mg capsule,extended release 24hr 150 mg PO DAILY Label Comments: TAKE 1 CAPSULE BY MOUTH EVERY DAY Sublocade 100 mg/0.5 mL solution, extended rel syringe See Rx Instructions .ROUTE .COMPLEX Label Comments: Inject 1 syringe subcutaneously single dose Given per Vaibhav Shah CNP in RUQ Lot #[id number] Exp 03/31 Rx Instructions: 100 mg subcutaneously every 4 weeks Referrals / Follow Up: Care Physician,No Primary [Primary Care Provider] - Disposition Disposition (needs filled in before D/C Order can be placed): DC/Tx to Another Type of HCF
--- NOTE | 2022-07-07 10:07 | NURSING ---
pt escorted to main enterance by diving judge to where route salesman and driver awaiting to take patient to [facility].
--- NOTE | 2022-07-07 12:05 | PCM.DC.SUM ---
Providers Date of Admission: 07/04/22 Primary Care Physician: No Primary Care Phys Reason For Visit: OPIOID ABUSE Diagnosis Discharge Diagnosis (1) Multiple substance abuse: Status: Acute Code(s): F19.10 - Other psychoactive substance abuse, uncomplicated Medications at Discharge Home Medications buprenorphine 100 mg/0.5 mL solution,exten.rel.subcutaneous syringe (Sublocade) See Rx Instructions .Route .COMPLEX opiod dependency 06/15/22 clonidine HCl 0.1 mg tablet 0.1 mg PO TID PRN Anxiety 06/15/22 venlafaxine 150 mg capsule,extended release 24 hr 150 mg PO DAILY Mood Stabilizer 06/15/22 Hospital Course Operations None Procedures None Summary of Care Provided Minutes Spent on Discharge: 35 Hospital Course: Per HPI:CHRISTIAN HALL, is a 36 M with a history of polysubstance abuse including heroin, methamphetamines and crack cocaine and who presents to the emergency department today desiring sobriety and detoxification.? Currently on long-acting buprenorphine outpatient treatment.? Asked about multiple skin lesions noted and patient admitting that he skin pops. Hospital Course: 1. Acute opiate withdrawal/polysubstance abuse/tobacco abuse/anxiety/depression?36-year-old male presents to the hospital with a second detox in a month. He feels better today than when he came in, I discussed with him the plan for discharge to inpatient rehab today and he expressed understanding of the risk and benefits of going and would like to go today. He did complete the opiate withdrawal protocol and was resting comfortably when I entered the room. He still does endorse some mild symptoms but otherwise much better than a few days ago. I do recommend that he follow-up with mental health as an outpatient as well, he is currently on Effexor as well as clonidine but may need to be on more robust therapy. Physical Exam Narrative General: Alert, Oriented x3, Cooperative, No apparent distress HEENT: Atraumatic, PERRLA, EOMI, Normocephalic Oral: Moist Mucosa Neck: Supple, No JVD Lungs: Clear to auscultation, Normal air movement, No rhonchi, No wheeze, No rales Cardiovascular: Regular rate, Regular Rhythm, Normal S1, Normal S2, No murmurs Abdomen: Soft, Non Tender, Non-Distended, No Hepato-splenomegaly Extremities: No edema, Capillary Refill Less than 3 Seconds Skin: No rashes, No breakdown Musculoskeletal: No Tenderness to Palpation of Joints or Extremities Neurological: Cranial nerves II-XII grossly intact, Motor Exam 5/5 strength throughout, Sensory exam intact to light touch and pain Psych/Mental Status: Normal Affect, Appropriate Weight / BMI Weight Weight: 212 lb 4.882 oz Body Mass Index (BMI) 31.3 ABG / Lab / Microbiology Data Result Diagrams: 07/04/22 17:03 07/04/22 17:03 D/C Instructions Discharge Diet: No restrictions Call your doctor if you observe: Fever of 101 or Higher, Shortness of breath, Dizziness, Fainting spells, Swelling in the ankles, Chest pain and Increased palpitations (irregular heartbeat) Meaningful Use Info Meaningful Use Diagnoses (Choose all that apply): None applicable Discharge Plan Admission Admit Date/Time: 07/04/22 19:00 Attending Provider: Elian Dickey Primary Care Provider: Care Physician,No Primary Consulting Providers: Bennie Hutchinson ; Preet Pedraza Discharge Orders/Prescriptions Prescriptions: Continued clonidine HCl 0.1 mg tablet 0.1 mg PO TID PRN (Reason: Anxiety) Label Comments: TAKE 1 TABLET BY MOUTH THREE TIMES DAILY NEEDED venlafaxine 150 mg capsule,extended release 24hr 150 mg PO DAILY Label Comments: TAKE 1 CAPSULE BY MOUTH EVERY DAY Sublocade 100 mg/0.5 mL solution, extended rel syringe See Rx Instructions .ROUTE .COMPLEX Label Comments: Inject 1 syringe subcutaneously single dose Given per Vaibhav Shah CNP in RUQ Lot #[id number] Exp 03/31 Rx Instructions: 100 mg subcutaneously every 4 weeks Referrals / Follow Up: Care Physician,No Primary [Primary Care Provider] - Disposition Disposition (needs filled in before D/C Order can be placed): DC/Tx to Another Type of HCF Charges/Coding Visit Charges Inpatient E&M: 58134 Disch Hosp >30min
== END 2022-07-07 10:07 | disposition other institution (70) | DRG 773 ==
LOC: ED 17:07 → MS3 19:44
PROVIDERS: Admitting Provider Internal Medicine; Emergency Provider Student in an Organized Health Care Education/Training Program; Visit Provider Family Medicine
DX: F11.23 Opioid dependence with withdrawal (principal); F14.90 Cocaine use, unspecified, uncomplicated; F17.210 Nicotine dependence, cigarettes, uncomplicated; R25.1 Tremor, unspecified; F41.9 Anxiety disorder, unspecified; F32.A Depression, unspecified
CPT/HCPCS: 36415; 76705; 80048; 80053; 82077; 85025; 99283

== ENCOUNTER 2022-08-21 17:05 | Inpatient (IN) | payer MEDICAID, SELFPAY ==
[2022-08-21 17:07] VITALS: BP 131/88; PULSE 99; RESP 20; TEMP 37.2; O2SAT 100; BMI 31.6
--- NOTE | 2022-08-21 18:04 | EDS_ITS ---
HPI History of Present Illness Chief Complaint: Substance Abuse Informant: patient Onset/Context/Timing Onset: Today Context: Gradual Onset Timing: Continuous Worsened by: Nothing Relieved by: Nothing Associated Symptoms Associated Symptoms: Positive for vomiting* and diarrhea*; Negative for fever*, rash*, seizure, tremor, palpatations, change in mental status, suicidal ideation or homicidal ideation Narrative Narrative: Patient presents requesting detox from opiates. Patient states that he injects heroin daily. Patient states he uses approximately a half a gram per day. Patient states his last use was earlier today. Patient states he has been having some nausea, vomiting, and diarrhea. Patient denies any seizures. Patient denies any fevers or chills. Patient denies any rashes or abscesses. Patient denies any suicidal or homicidal ideations. Patient states he went through detox here recently but relapsed again. Patient states he wants to get back into detox before his drug use gets severe again. [facility] Medical History Anxiety and depression Hepatitis C IVDU (intravenous drug user) Multiple substance abuse Substance abuse Tobacco abuse Home Medications buprenorphine 100 mg/0.5 mL solution,exten.rel.subcutaneous syringe (Sublocade) See Rx Instructions .Route .COMPLEX opiod dependency 06/15/22 [History Last Taken Unknown] clonidine HCl 0.1 mg tablet 0.1 mg PO TID PRN Anxiety 06/15/22 [History Last Taken Unknown] venlafaxine 150 mg capsule,extended release 24 hr 150 mg PO DAILY Mood Stabilizer 06/15/22 [History Last Taken 06/15/22 09:00] albuterol sulfate 90 mcg/actuation aerosol inhaler 1 - 2 puff inhalation UD PRN SHORTNESS OF BREATH/WHEEZING 08/21/22 [History Last Taken Unknown] gabapentin 300 mg capsule mg 08/21/22 [History Last Taken Unknown] gabapentin 600 mg tablet 600 mg PO TID NERVE PAIN 08/21/22 [History Last Taken Unknown] Allergy/AdvReac Type Severity Reaction Status Date / Time No Known Allergies Allergy Verified 08/21/22 17:06 Family History no significant family his Surgical History H/O inguinal hernia repair Social History (Updated 08/21/22 @ 18:[address] Renetta Lucas, DO) Smoking Status: Current every day smoker tobacco type: cigarettes alcohol intake: never substance use type: crack/cocaine, heroin and amphetamines ROS ROS ED Constitutional Constitutional ED: Denies chills or fever(s) Eyes Eyes: Denies blurry vision or change in vision ENT ENT ED: Denies rhinorrhea or sore throat Cardiovascular Cardiovascular: Denies chest pain or palpitations Respiratory/Chest Respiratory/Chest: Denies cough or dyspnea Gastrointestinal Gastrointestinal: Reports diarrhea, nausea and vomiting; Denies melena Genitourinary Genitourinary ED: Denies dysuria or hematuria Musculoskeletal Musculoskeletal: Denies back pain or neck pain Integumentary Denies abscess or rash Neurologic Neurologic: Denies headache(s) or weakness Psychiatric Psychiatric: Denies suicidal ideation or suicidal thoughts Allergic/Immunologic Allergic/Immunologic ED: Denies mouth swelling or urticaria EXAM Physical Exam Const Vital Signs: 08/21/22 17:07 Temperature 99 F Temperature Source Temporal Pulse Rate 99 Respiratory Rate 20 H Blood Pressure 131/88 H Blood Pressure Mean 102 Pulse Ox 100 Oxygen Delivery Method Room Air Positive well nourished and well developed General Appearance ED: well developed HEENT Reports moist mucous membranes Neck supple and no JVD Resp normal respiratory effort and clear to auscultation bilaterally Cardio regular rate, regular rhythm and no murmurs GI normal to inspection, nondistended, normoactive bowel sounds and non-tender Palpation: soft Extremity normal to inspection General Extremety ED: Negative for edema or tenderness General Extremity: Negative for edema Neuro oriented x3, CN's II-XII intact bilaterally and no sensory deficits noted Sensorium / Orientation: alert Motor Exam: strength 5/5 throughout Psych mental status grossly normal Skin no rashes or lesions noted MDM MDM MDM Narrative Medical decision making narrative: Basic medical screening labs will be obtained. CBC will be obtained to assess for leukocytosis and anemia. Comprehensive metabolic profile will be obtained to assess for electrolyte abnormality, renal function, and hepatic function. Urine tox screen will be obtained to assess for substance abuse. Serum alcohol level will be obtained to assess for alcohol intoxication. History & Record Review Additional record(s) reviewed:: Prior inpatient record, Prior ED visit and Prior labs Management Discussion w/another healthcare provider: Hospitalist (Dr. Lucas) Treatment and Re-Evaluation Narrative: Patient was given a nicotine patch. Case was discussed with the hospitalist. She will admit the patient to her service. Patient understands and is agreeable with the plan. All questions were answered. Discharge Plan Triage Chief Complaint: Substance Abuse ED Provider: Escobar Ramachandran Dx/Rx/DC Orders Clinical Impression: Desire for detoxification, Opiate abuse, continuous Prescriptions: No Action clonidine HCl 0.1 mg tablet 0.1 mg PO TID PRN (Reason: Anxiety) Patient Comments: TAKE 1 TABLET BY MOUTH THREE TIMES DAILY NEEDED venlafaxine 150 mg capsule,extended release 24hr 150 mg PO DAILY Patient Comments: TAKE 1 CAPSULE BY MOUTH EVERY DAY Sublocade 100 mg/0.5 mL solution, extended rel syringe See Rx Instructions .ROUTE .COMPLEX Patient Comments: Inject 1 syringe subcutaneously single dose Given per Vaibhav Shah CNP in RUQ Lot #[id number] Exp 03/31 Rx Instructions: 100 mg subcutaneously every 4 weeks gabapentin 600 mg tablet 600 mg PO TID albuterol sulfate 90 mcg/actuation HFA aerosol inhaler 1 - 2 puff INHALATION UD PRN (Reason: SHORTNESS OF BREATH/WHEEZING ) Rx Instructions: INHALE 1 TO 2 PUFFS BY MOUTH AND INTO THE LUNGS EVERY 4 TO 6 HOURS NEEDED gabapentin 300 mg capsule Patient Comments: TAKE 1 CAPSULE BY MOUTH THREE TIMES DAILY Primary Care Provider: ALBERTO RODRIGUEZ Referrals: ALBERTO RODRIGUEZ [Other] Disposition Disposition: Acute Care Hospital [facility]
--- NOTE | 2022-08-21 18:20 | PCM.HP.STD ---
HPI - General General Date of Admission: 08/21/22 Date of Service: 08/21/22 Chief Complaint: Opiate abuse HPI Narrative CHRISTIAN HALL, is a 36 M who presented to the emergency department at [facility] on 08/21/2022 requesting detox from opiates. Patient was recently admitted here from 07/04/2022 through 07/07/2022 for opiate detox and at that time was discharged to an inpatient rehab facility. The patient reported he was there for approximately 18 days at which time he was discharged and had maintained sobriety until about a week ago. He indicates he started using again because of multiple stressors in his personal life. He is currently using about a half a gram a day of IV opiates and admits to cocaine use today. Last use was on the morning of admission. He is currently not having any withdrawal symptoms. He indicates plans at discharge or for readmission to an inpatient rehab facility. Vital signs on presentation show a temperature of 99, heart rate 99, blood pressure 131/88, respiratory rate is 20, and sat is 99% on room air. CBC and BMP are pending. [facility] Medical History Anxiety and depression Hepatitis C IVDU (intravenous drug user) Multiple substance abuse Substance abuse Tobacco abuse Home Medications buprenorphine 100 mg/0.5 mL solution,exten.rel.subcutaneous syringe (Sublocade) See Rx Instructions .Route .COMPLEX opiod dependency 06/15/22 [History Last Taken Unknown] clonidine HCl 0.1 mg tablet 0.1 mg PO TID PRN Anxiety 06/15/22 [History Last Taken Unknown] venlafaxine 150 mg capsule,extended release 24 hr 150 mg PO DAILY Mood Stabilizer 06/15/22 [History Last Taken 06/15/22 09:00] albuterol sulfate 90 mcg/actuation aerosol inhaler 1 - 2 puff inhalation UD PRN SHORTNESS OF BREATH/WHEEZING 08/21/22 [History Last Taken Unknown] gabapentin 300 mg capsule mg 08/21/22 [History Last Taken Unknown] gabapentin 600 mg tablet 600 mg PO TID NERVE PAIN 08/21/22 [History Last Taken Unknown] Allergy/AdvReac Type Severity Reaction Status Date / Time No Known Allergies Allergy Verified 08/21/22 17:06 no significant family history Surgical History H/O inguinal hernia repair Social History (Updated 08/21/22 @ 18:[address] Renetta Lucas DO) Smoking Status: Current every day smoker tobacco type: cigarettes alcohol intake: never substance use type: crack/cocaine, heroin and amphetamines ROS Constitutional Constitutional: Denies anorexia, change in weight, chills, fatigue, fever(s), malaise, night sweats, weakness or other Eyes Eyes: Denies blurry vision, change in eye color, change in vision, discharge from eye(s), double vision, erythema, eye pain, loss of vision or other ENT HEENT: Denies abnormal hearing, dysphagia, ear pain, epistaxis, headache(s), hearing loss, nasal congestion, nasal discharge, post nasal drip, sinus pressure, sore throat or other Cardiovascular Cardiovascular: Denies chest pain, claudication, dyspnea on exertion, edema, lightheadedness, orthopnea, palpitations, paroxysmal nocturnal dyspnea, rapid heart rate, syncope or other Respiratory/Chest Respiratory/Chest: Denies cough, dyspnea, excessive phlegm production, hemoptysis, productive cough, shortness of breath at rest, shortness of breath with exertion, wheezing or other Gastrointestinal Gastrointestinal: Denies abdominal pain, coffee ground emesis, constipation, diarrhea, dyspepsia, hematemesis, hematochezia, loose stools, melena, nausea, vomiting or other Genitourinary Genitourinary: Denies burning urination, difficulty urinating, dysuria, hematuria, nocturia, urinary frequency, urinary hesitancy, urinary incontinence, urinary urgency or other Musculoskeletal Musculoskeletal: Denies arthralgias, back pain, joint pain, joint stiffness, joint swelling, myalgias, neck pain or other Neurologic Neurologic: Denies abnormal gait, abnormal speech, confusion, disequilibrium, dizziness, focal weakness, headache(s), numbness, paresthesias, seizure-like activity, seizures, syncope, tingling, tremor(s) or other Psychiatric Psychiatric: Reports anxiety and depression; Denies homicidal ideation, suicidal ideation or other Endocrine Endocrinology: Denies change in body appearance, cold intolerance, excessive sweating, heat intolerance, polydipsia, polyuria or other Hematologic/Lymphatic Hematologic/Lymphatic: Denies anemia, easy bleeding, easy bruising, lymphadenopathy or other Allergic/Immunologic Allergic/Immunologic: Denies rhinitis, hives, eczemia, asthma or other Vital Signs Vital Signs Vital Signs: 08/21/22 17:07 Temperature 99 F Temperature Source Temporal Pulse Rate 99 Respiratory Rate 20 H Blood Pressure 131/88 H Blood Pressure Mean 102 Pulse Ox 100 Oxygen Delivery Method Room Air Weight Weight: 97.069 kg Body Mass Index (BMI) 31.6 Physical Exam Const alert, oriented x3, no apparent distress and well nourished Constitutional Narrative: Overweight, middle-aged, white male, sitting up in bed, appears comfortable nontoxic, no signs of withdrawal symptoms at this time HEENT normocephalic, head/scalp atraumatic, hearing grossly normal bilaterally and moist oral mucous membranes HEENT Narrative: Dentition is good, Mallampati is 1, no thrush Resp normal respiratory effort, no retractions, no use of accessory muscles and clear to auscultation bilaterally Auscultation: Negative for rales, rhonchi or wheezes Cardio regular rate, regular rhythm, S1 normal heart sound, S2 normal heart sound, no murmurs, no rub, no gallops and no clicks GI normal to inspection, nondistended, normoactive bowel sounds, soft to palpation and non-tender Extremity no clubbing, cyanosis or edema Extremity Narrative: Pedal pulses are 2+, radial pulses are 2+ Neuro oriented x3, moves all extremities and no focal motor deficits Speech: speech normal Motor Exam: strength 5/5 throughout Psych Psych Narrative: Affect is slightly flat and mood seems mildly depressed however eye contact is good and patient is appropriately interactive Assessment & Plan Assessment/Plan (1) Desire for detoxification: (2) Opiate abuse, continuous: PLAN: Plan Opiate abuse with pending withdrawal -Patient with recent admission from July 04, 2022 through July 07, 2022 for opiate detox -Patient was discharged to inpatient rehab and stayed 18 days -Was sober until about a week ago -Patient stated he started using again due to multiple stressors--> IVDU--> check HIV status -Has been using heavy for about a week with approximately half a gram a day -Also admitted to cocaine use today -Start buprenorphine taper per protocol -Supportive medications for withdrawal symptoms -Plan is for inpatient rehab again after discharge -180 consultation to help facilitate discharge planning History of hepatitis C -Patient with history of IVDU -Would recommend outpatient treatment once patient is able to maintain sobriety Anxiety/depression -Continue home Effexor Tobacco abuse -Nicotine patch -Recommend cessation DVT prophylaxis -Low risk -Encourage frequent and early ambulation CODE STATUS Full code Charges/Coding Visit Charges Inpatient E&M: 11708 Init Hosp L2
--- NOTE | 2022-08-21 18:28 | CM.ED ---
Social Work Renata PARRY's office called to report they were bringing patient for detox. Office reported patient is on probation and Hollie might need to communicate with his ambulance officer and their office regarding treatment. Left voicemail for treatment navigator regarding admission. Tahira Weston UTILITY LOCATE TECHNICIAN, MANAGER INTENSIVE CARE UNIT
[2022-08-21 18:42] LABS: Absolute Lymphocyte Count 1.49 X10^3/uL (0.83-4.51); Absolute Neutrophil Count 8.3 X10^3/uL (2.0-7.7); Basophil# 0.04 X10^3/uL; Basophil% 0.4 % (0-1); Eosinophil# 0.01 X10^3/uL; Eosinophils% 0.1 % (0-5); Hematocrit 44.1 % (40-54); Hemoglobin 13.3 g/dL (13.0-16.5); Lymphocyte # 1.49 X10^3/ul (0.83-4.51); Lymphocyte % 14.9 % (19-41); Mean Corp Hgb Conc 30.2 g/dL (32-36); Mean Corpuscular Hgb 26.2 pg (27.0-32.0); Mean Platelet Vol. 11.2 fl (6.2-12.0); Monocyte# 0.21 X10^3/uL; Monocyte% 2.1 % (0-10); NRBC Flagged by Analyzer 0 % (0-5); Neutrophil # 8.25 X10^3/uL (2.7-7.7); Neutrophil % 82.2 % (47-70); Platelet Count 308 K/mm3 (150-450); RBC Distribution Width CV 15.2 % (11.6-14.6); RBC Distribution Width SD 47.7 fl (35.1-43.9); Red Blood Count 5.07 M/mm3 (4.6-6.2)
[2022-08-21 19:02] LABS: Amphetamine Urine VISTA NEGATIVE (<1000 ng/mL); Anion Gap 7 (5-15); BUN 9 mg/dL (7-18); BUN/Creat Ratio 11.5 RATIO (10-20); Barbiturate Urine VISTA NEGATIVE (< 200 ng/mL); Benzodiazepine Urine VISTA NEGATIVE (< 200 ng/mL); Calcium,Total 9.3 mg/dL (8.5-10.1); Chloride 108 mmol/L (98-107); Cocaine Urine VISTA POSITIVE (< 300 ng/mL); Creatinine, Serum 0.78 mg/dL (0.70-1.30); EST Glomerular Filtration Rate 118 mL/min (>60); Ecstacy Urine VISTA NEGATIVE (< 500 ng/mL); Est Glom Filt Rate - Afr Amer 143 mL/min (>60); Estimated Creatinine Clearance 129.67 ml/min; Glucose 124 mg/dL (74-106); Methadone Urine VISTA NEGATIVE (< 300 ng/mL); PCP Urine VISTA NEGATIVE (< 25 ng/mL); Potassium 3.8 mmol/L (3.5-5.1); Sodium Level 138 mmol/L (136-145); THC Urine VISTA NEGATIVE (< 50 ng/mL); Vista UDS pH Range 6
[2022-08-21 19:05] VITALS: BP 131/88; PULSE 99; RESP 20; TEMP 37.2; O2SAT 100
[2022-08-21 19:05] LABS: Alcohol, Blood (Medical)-Serum < 3.0 mg/dL
[2022-08-21 20:03] VITALS: BMI 32.1
[2022-08-21 20:05] VITALS: BP 112/69; PULSE 77; RESP 16; TEMP 36.6; O2SAT 96
[2022-08-21] MEDS: Dicyclomine 10 MG Capsule 20 MG PO (20:28)
[2022-08-21] MEDS: hydrOXYzine PAM 25 MG Capsule 50 MG PO (20:28)
[2022-08-21] MEDS: Ondansetron 8 MG Tablet PO (20:29)
[2022-08-21] MEDS: Methocarbamol 750 MG Tablet 1500 MG PO (20:29)
[2022-08-22 03:49] VITALS: BP 102/66; PULSE 69; RESP 18; TEMP 36.6; O2SAT 92
[2022-08-22 08:01] LABS: ALB/GLOB Ratio 0.7 RATIO (0.9-2.4); AST(SGOT) 39 U/L (15-37); Alanine Aminotransfer ALT/SGPT 55 U/L (16-61); Albumin, Serum 2.9 g/dL (3.2-5.0); Alkaline Phosphatase 87 U/L (45-117); Anion Gap 4 (5-15); BUN 11 mg/dL (7-18); BUN/Creat Ratio 16.6 RATIO (10-20); Chloride 111 mmol/L (98-107); Creatinine, Serum 0.66 mg/dL (0.70-1.30); EST Glomerular Filtration Rate 143 mL/min (>60); Est Glom Filt Rate - Afr Amer 173 mL/min (>60); Estimated Creatinine Clearance 153.24 ml/min; Globulin 4.1 g/dL (2.2-4.2); Glucose 120 mg/dL (74-106); Magnesium 2.3 mg/dL (1.6-2.6); Phosphorus 3.9 mg/dL (2.5-4.9); Potassium 3.6 mmol/L (3.5-5.1); Sodium Level 140 mmol/L (136-145); Thyroid Stim Hormone (TSH) 0.48 uIU/mL (0.358-3.74)
[2022-08-22] MEDS: Venlafaxine XR 150 MG Capsule PO (09:40)
[2022-08-22] MEDS: Methocarbamol 750 MG Tablet 1500 MG PO ×2 (09:40→17:54)
[2022-08-22] MEDS: hydrOXYzine PAM 25 MG Capsule 50 MG PO ×2 (09:40→17:54)
[2022-08-22] MEDS: Ondansetron 8 MG Tablet PO (09:40)
[2022-08-22 09:53] VITALS: BP 108/73; PULSE 73; RESP 18; TEMP 36.7; O2SAT 98
[2022-08-22] MEDS: Buprenorphine HCl 2 MG TAB.SUBL SL ×2 (10:10→17:55)
--- NOTE | 2022-08-22 11:43 | ADDICTION ---
This show card writer met with PT to conduct ASAM, MSE, AUDIT, DUDIT assessments and to plan for d/c. PT A+Ox4 and participated actively. All assessments completed and placed in PT's chart. PT plans to f/u with [facility] for follow-up treatment services. PT did not indicate a need for transportation post d/c from [facility].
--- NOTE | 2022-08-22 12:26 | PN.HOSP_ITS ---
Reason for Visit Reason for Visit: Opiate detox Subjective Subjective Patient started having withdrawal symptoms including tremulousness, anxiety, nausea without vomiting. Denies any diarrhea. We will start buprenorphine this morning. Plans at discharge to follow-up with [facility]. Objective Data Objective Data Vital Signs: Vital Signs Temp Pulse Resp BP Pulse Ox O2 Del Method 98.1 F 73 18 108/73 98 Room Air 08/22/22 09:53 08/22/22 09:53 08/22/22 09:53 08/22/22 09:53 08/22/22 09:53 08/22/22 09:53 Oxygen Delivery Method Room Air Weight: 98.9 kg Body Mass Index (BMI) 32.1 Lab / Micro Data 08/21/22 18:30 08/22/22 06:30 Labs: Laboratory Results - last 24 hr 08/21/22 18:30: WBC 10.0, RBC 5.07, Hgb 13.3, Hct 44.1, MCV 87.0, MCH 26.2 L, MCHC 30.2 L, RDW Std Deviation 47.7 H, RDW Coeff of Ignacia 15.2 H, Plt Count 308, MPV 11.2, Immature Gran % (Auto) 0.300, Neut % (Auto) 82.2 H, Lymph % (Auto) 14.9 L, [place]ceana % (Auto) 2.1, Eos % (Auto) 0.1, Baso % (Auto) 0.4, Absolute Neuts (auto) 8.3 H, Absolute Lymphs (auto) 1.49, Nucleated RBC % 0, Sodium 138, Potassium 3.8, Chloride 108 H, Carbon Dioxide 23.0, Anion Gap 7, BUN 9, Creatinine 0.78, Estim Creat Clear Calc 129.67, Est GFR (MDRD) Af Amer 143, Est GFR (MDRD) Non-Af 118, BUN/Creatinine Ratio 11.5, Glucose 124 H, Calcium 9.3, Urine Opiates Screen NEGATIVE, Urine Methadone Screen NEGATIVE, Ur Barbiturates Screen NEGATIVE, Ur Phencyclidine Scrn NEGATIVE, Ur Amphetamines Screen NEGATIVE, MDMA (Ecstasy) Screen NEGATIVE, U Benzodiazepines Scrn NEGATIVE, Urine Cocaine Screen POSITIVE H, U Cannabinoids Screen NEGATIVE, Ur Drug Screen Comment , Ethyl Alcohol < 3.0 08/22/22 06:30: Sodium 140, Potassium 3.6, Chloride 111 H, Carbon Dioxide 25.0, Anion Gap 4 L, BUN 11, Creatinine 0.66 L, Estim Creat Clear Calc 153.24, Est GFR (MDRD) Af Amer 173, Est GFR (MDRD) Non-Af 143, BUN/Creatinine Ratio 16.6, Glucose 120 H, Calcium 9.0, Phosphorus 3.9, Magnesium 2.3, Total Bilirubin 0.20, AST 39 H, ALT 55, Alkaline Phosphatase 87, Total Protein 7.0, Albumin 2.9 L, Globulin 4.1, Albumin/Globulin Ratio 0.7 L, TSH 0.48 Physical Exam Const alert, oriented x3, no apparent distress and well nourished Constitutional Narrative: Overweight, middle-aged, white male, lying in bed under multiple covers, appears uncomfortable but nontoxic HEENT normocephalic, head/scalp atraumatic, hearing grossly normal bilaterally and moist oral mucous membranes Resp normal respiratory effort, no retractions, no use of accessory muscles and clear to auscultation bilaterally Auscultation: Negative for rales, rhonchi or wheezes Cardio regular rate, regular rhythm, S1 normal heart sound, S2 normal heart sound, no murmurs, no rub, no gallops and no clicks GI normal to inspection, nondistended, normoactive bowel sounds, soft to palpation and non-tender Extremity no clubbing, cyanosis or edema Extremity Narrative: Pedal pulses are 2+, radial pulses are 2+ Neuro oriented x3 and moves all extremities Speech: speech normal Psych Psych Narrative: Affect is flatter today and patient is less willing to interact due to his feeling poorly Assessment & Plan Assessment/Plan (1) Desire for detoxification: (2) Opiate abuse, continuous: PLAN: Plan Opiate abuse with pending withdrawal -Patient with recent admission from July 04, 2022 through July 07, 2022 for opiate detox -Patient was discharged to inpatient rehab and stayed 18 days -Was sober until about a week ago -Patient stated he started using again due to multiple stressors--> IVDU--> HIV status pending -Has been using heavy for about a week with approximately half a gram a day -Also admitted to cocaine use today -Continue buprenorphine taper--> end date is 08/25/2022 at 9:59 AM -Supportive medications for withdrawal symptoms -180 following and plan is f/u with [facility] after discharge -Went to [facility] for inpt rehab after last admission in June History of hepatitis C -Patient with history of IVDU -Would recommend outpatient treatment once patient is able to maintain sobriety Anxiety/depression -Continue home Effexor Tobacco abuse -Nicotine patch -Recommend cessation DVT prophylaxis -Low risk -Encourage frequent and early ambulation CODE STATUS Full code Charges/Coding Visit Charges Inpatient E&M: 25361 Subs Hosp L2
[2022-08-22 13:22] LABS: HIV - WCH Non-Reactive (Nonreactive)
[2022-08-22 14:41] VITALS: BP 105/65; PULSE 68; RESP 18; TEMP 36.6; O2SAT 93
[2022-08-22] MEDS: cloNIDine HCl 0.1 MG Tablet PO (14:44)
[2022-08-22] MEDS: Dicyclomine 10 MG Capsule 20 MG PO (17:54)
[2022-08-22 18:05] VITALS: BP 115/76; PULSE 63; RESP 18; TEMP 36.6; O2SAT 96
[2022-08-22 21:56] VITALS: BP 108/72; PULSE 57; RESP 18; TEMP 36.6; O2SAT 94
[2022-08-22] MEDS: traZODone 100 MG Tablet PO (21:59)
[2022-08-22] MEDS: Gabapentin 300 MG Capsule PO (21:59)
[2022-08-23] MEDS: Buprenorphine HCl 2 MG TAB.SUBL SL ×3 (02:54→18:24)
[2022-08-23 02:55] VITALS: BP 109/71; PULSE 57; RESP 18; TEMP 36.4; O2SAT 95
[2022-08-23 08:55] VITALS: BP 107/68; PULSE 63; RESP 16; TEMP 36.3; O2SAT 95
[2022-08-23] MEDS: Venlafaxine XR 150 MG Capsule PO (10:06)
[2022-08-23] MEDS: Acetaminophen 325 MG Tablet 650 MG PO (10:16)
[2022-08-23] MEDS: Methocarbamol 750 MG Tablet 1500 MG PO (10:17)
[2022-08-23] MEDS: Dicyclomine 10 MG Capsule 20 MG PO (10:17)
[2022-08-23] MEDS: Ondansetron 8 MG Tablet PO (10:17)
[2022-08-23] MEDS: cloNIDine HCl 0.1 MG Tablet PO (10:17)
[2022-08-23] MEDS: Gabapentin 300 MG Capsule PO (10:17)
--- NOTE | 2022-08-23 11:26 | PN.HOSP_ITS ---
Reason for Visit Reason for Visit: Opiate detox Subjective Subjective No issues overnight per nursing and patient sleeping soundly at the time of my evaluation today. Objective Data Objective Data Vital Signs: Vital Signs Temp Pulse Resp BP Pulse Ox O2 Del Method 97.5 F L 57 L 18 109/71 95 Room Air 08/23/22 02:55 08/23/22 02:55 08/23/22 02:55 08/23/22 02:55 08/23/22 02:55 08/23/22 02:55 Oxygen Delivery Method Room Air Weight: 98.9 kg Body Mass Index (BMI) 32.1 Lab / Micro Data 08/21/22 18:30 08/22/22 06:30 Labs: Laboratory Results - last 24 hr 08/21/22 18:30: HIV 1&2 Antibody Non-Reactive Physical Exam Const Constitutional Narrative: Patient sleeping soundly, appears comfortable and nontoxic Assessment & Plan Assessment/Plan (1) Opiate abuse, continuous: (2) Desire for detoxification: PLAN: Plan Opiate abuse with pending withdrawal -Patient with recent admission from July 04, 2022 through July 07, 2022 for opiate detox -Patient was discharged to inpatient rehab and stayed 18 days -Was sober until about a week before presentation -Patient stated he started using again due to multiple stressors--> IVDU--> HIV was nonreactive -Has been using heavy for about a week with approximately half a gram a day -Also admitted to cocaine use on day of admission -Continue buprenorphine taper--> end date is 08/25/2022 at 9:59 AM -Supportive medications for withdrawal symptoms -180 following and plan is f/u with [facility] after discharge -Went to [facility] for inpt rehab after last admission in June -Anticipate discharge on Sunday morning History of hepatitis C -Patient with history of IVDU -Would recommend outpatient treatment once patient is able to maintain sobriety Anxiety/depression -Continue home Effexor Tobacco abuse -Nicotine patch -Recommend cessation DVT prophylaxis -Low risk -Encourage frequent and early ambulation CODE STATUS Full code Charges/Coding Visit Charges Inpatient E&M: 45090 Subs Hosp L1
[2022-08-23 14:55] VITALS: BP 108/70; PULSE 60; RESP 16; TEMP 36.4; O2SAT 94
[2022-08-23] MEDS: hydrOXYzine PAM 25 MG Capsule 50 MG PO (18:23)
[2022-08-23 22:00] VITALS: BP 105/70; PULSE 67; RESP 16; TEMP 36.6; O2SAT 95
[2022-08-24 02:00] VITALS: BP 105/67; PULSE 65; RESP 16; TEMP 36.6; O2SAT 96
[2022-08-24] MEDS: Dicyclomine 10 MG Capsule 20 MG PO (02:17)
[2022-08-24] MEDS: hydrOXYzine PAM 25 MG Capsule 50 MG PO ×2 (02:17→15:36)
[2022-08-24] MEDS: Buprenorphine HCl 2 MG TAB.SUBL SL ×3 (02:17→21:23)
[2022-08-24 10:00] VITALS: BP 109/70; PULSE 65; RESP 17; TEMP 36.4; O2SAT 95
[2022-08-24] MEDS: Venlafaxine XR 150 MG Capsule PO (10:06)
[2022-08-24] MEDS: Gabapentin 300 MG Capsule PO (10:06)
[2022-08-24] MEDS: Acetaminophen 325 MG Tablet 650 MG PO (10:06)
--- NOTE | 2022-08-24 10:50 | ADDICTION ---
Pt has decided on inpatient treatment. He has been approved at the [facility] in [facility]. The plan is for him to be picked up tomorrow afternoon by the residential facility.
--- NOTE | 2022-08-24 12:39 | PCM.PN.HOSP ---
Reason for Visit Reason for Visit: Opiate detox Subjective Subjective Patient states he is still feeling like crap. Still with some nausea but no vomiting. Is able to take p.o. without problem. No diarrhea. Still having generalized myalgias and anxiety. Objective Data Objective Data Vital Signs: Vital Signs Temp Pulse Resp BP Pulse Ox O2 Del Method 97.6 F L 65 17 109/70 95 Room Air 08/24/22 10:00 08/24/22 10:00 08/24/22 10:00 08/24/22 10:00 08/24/22 10:00 08/24/22 10:00 Oxygen Delivery Method Room Air Weight: 98.9 kg Body Mass Index (BMI) 32.1 Intake & Output: Intake and Output for Last 24 Hours 08/22/22 08/23/22 08/24/22 23:59 23:59 23:59 Intake Total 1760 / 1760 Balance 1760 / 1760 Lab / Micro Data 08/21/22 18:30 08/22/22 06:30 Physical Exam Const alert, oriented x3, no apparent distress, average body habitus and well nourished Constitutional Narrative: Middle-aged, white male, lying in bed, appears comfortable at this time but does not appear baseline HEENT normocephalic, head/scalp atraumatic, hearing grossly normal bilaterally and moist oral mucous membranes Resp normal respiratory effort, no retractions, no use of accessory muscles and clear to auscultation bilaterally Auscultation: Negative for rales, rhonchi or wheezes Cardio regular rate, regular rhythm, S1 normal heart sound, S2 normal heart sound, no murmurs, no rub, no gallops and no clicks GI normal to inspection, nondistended, normoactive bowel sounds, soft to palpation and non-tender Extremity no clubbing, cyanosis or edema Extremity Narrative: Pedal pulses are 2+, radial pulses are 2+ Neuro oriented x3, moves all extremities and no focal motor deficits Speech: speech normal Motor Exam: strength 5/5 throughout Psych Psych Narrative: Affect is slightly flat, mood is appropriate for situation Assessment & Plan Assessment/Plan (1) Opiate abuse, continuous: (2) Desire for detoxification: PLAN: Plan Opiate abuse with pending withdrawal -Patient with recent admission from July 04, 2022 through July 07, 2022 for opiate detox -Patient was discharged to inpatient rehab and stayed 18 days -Was sober until about a week before presentation -Patient stated he started using again due to multiple stressors--> IVDU--> HIV was nonreactive -Has been using heavy for about a week with approximately half a gram a day -Also admitted to cocaine use on day of admission -Continue buprenorphine taper--> end date is 08/25/2022 at 9:59 AM -Supportive medications for withdrawal symptoms -180 following and plan is f/u with [facility] after discharge -Went to [facility] for inpt rehab after last admission in June -Anticipate discharge on Sunday morning History of hepatitis C -Patient with history of IVDU -Would recommend outpatient treatment once patient is able to maintain sobriety Anxiety/depression -Continue home Effexor Tobacco abuse -Nicotine patch -Recommend cessation DVT prophylaxis -Low risk -Encourage frequent and early ambulation CODE STATUS Full code Disposition -Last dose of buprenorphine is tomorrow morning we will plan for discharge following Charges/Coding Visit Charges Inpatient E&M: 35694 Subs Hosp L1
[2022-08-24 15:30] VITALS: BP 111/75; PULSE 59; RESP 17; TEMP 36.7; O2SAT 97
[2022-08-24] MEDS: Methocarbamol 750 MG Tablet 1500 MG PO (15:36)
[2022-08-24] MEDS: traZODone 100 MG Tablet PO (21:23)
[2022-08-24 21:25] VITALS: BP 113/68; PULSE 79; RESP 16; TEMP 36.8; O2SAT 99
[2022-08-25 03:25] VITALS: BP 108/66; PULSE 66; RESP 16; TEMP 36.8; O2SAT 100
[2022-08-25] MEDS: Venlafaxine XR 150 MG Capsule PO (09:20)
[2022-08-25 09:25] VITALS: BP 112/68; PULSE 72; RESP 16; TEMP 36.8; O2SAT 100
--- NOTE | 2022-08-25 11:45 | DS.PCM_ITS ---
Providers Date of Admission: 08/21/22 Date of Discharge: 08/25/22 Primary Care Physician: ALBERTO RODRIGUEZ Reason For Visit: OPIATE DETOX Diagnosis Discharge Diagnosis (1) Opiate abuse, continuous: Status: Acute Code(s): F11.10 - Opioid abuse, uncomplicated (2) Desire for detoxification: Status: Acute Medications at Discharge Home Medications clonidine HCl 0.1 mg tablet 0.1 mg PO TID PRN Anxiety 06/15/22 venlafaxine 150 mg capsule,extended release 24 hr 150 mg PO DAILY Mood Stabilizer 06/15/22 albuterol sulfate 90 mcg/actuation aerosol inhaler 1 - 2 puff inhalation UD PRN SHORTNESS OF BREATH/WHEEZING 08/21/22 gabapentin 600 mg tablet 600 mg PO TID NERVE PAIN 08/21/22 Hospital Course Operations None Procedures None Summary of Care Provided Minutes Spent on Discharge: 28 Hospital Course: Mr. Rangel is a 36-year-old white male who presented to the emergency department at [facility] on 08/21/2022 requesting detox from opiates. He had a recent admission here from 07/04/2022 through 07/07/2022 for opiate detox at that time was discharged to an inpatient rehab facility. He reported on admission that he was there for approximately 18 days at which time he was discharged and maintain sobriety until about a week prior to presentation. He indicated he began using again because of multiple stressors in his personal life but has the desire to become sober again. He was using about a half a gram a day of IV opiates at the time of admission and also admit esha to cocaine use on the day of admission. His last use was on the day he presented to the emergency department. At the time of admission he did not have any withdrawal symptoms. Vital signs upon presentation were unremarkable. His labs were overall unremarkable. We did obtain an HIV which was nonreactive. He has a history of hepatitis C. He was placed on a buprenorphine and per [facility] protocol and started on this the morning after he presented as his symptoms were substantial enough to do so. Supportive medications were also ordered for symptom management. His withdrawal was overall unremarkable and uneventful. He did meet with services from [facility] and elected on discharge to inpatient facility. A bed was available for him and his detox was complete on 08/25 2022. He was discharged in stable condition to [facility] in [facility]. Discharge diagnoses: Acute opiate withdrawal Opiate abuse History of hepatitis C-chronic Anxiety Depression Polysubstance abuse Tobacco abuse Physical Exam Const alert, oriented x3, no apparent distress, average body habitus and well nourished Constitutional Narrative: Middle-aged, white male, lying in bed, appears comfortable at this time but does not appear baseline General Appearance: cooperative, comfortable, well kempt and well developed Orientation / Consciousness: awake, oriented to person, oriented to place and oriented to time Exam Limitations: no limitations Nutritional Appearance: obese HEENT normocephalic, head/scalp atraumatic, hearing grossly normal bilaterally and moist oral mucous membranes HEENT Narrative: Dentition is good, Mallampati is 2, no thrush Resp normal respiratory effort, no retractions, no use of accessory muscles and clear to auscultation bilaterally Auscultation: Negative for rales, rhonchi or wheezes Cardio regular rate, regular rhythm, S1 normal heart sound, S2 normal heart sound, no murmurs, no rub, no gallops and no clicks GI normal to inspection, nondistended, normoactive bowel sounds, soft to palpation and non-tender Extremity no clubbing, cyanosis or edema Extremity Narrative: Pedal pulses are 2+ Neuro oriented x3, moves all extremities and no focal motor deficits Speech: speech normal Motor Exam: strength 5/5 throughout Psych affect normal Psych Narrative: Patient seems somewhat depressed Weight / BMI Weight Weight: 98.9 kg Body Mass Index (BMI) 32.1 ABG / Lab / Microbiology Data 08/21/22 18:30 08/22/22 06:30 D/C Instructions Discharge Diet: No restrictions Discharge Activity: Return to Normal Activity Meaningful Use Info Meaningful Use Diagnoses (Choose all that apply): None applicable Discharge Plan Admission Admit Date/Time: 08/21/22 18:17 Primary Reason for Your Visit: Opiate detox Attending Provider: Renetta Lucas Primary Care Provider: ALBERTO RODRIGUEZ Discharge Orders/Prescriptions Prescriptions: Continued clonidine HCl 0.1 mg tablet 0.1 mg PO TID PRN (Reason: Anxiety) Patient Comments: TAKE 1 TABLET BY MOUTH THREE TIMES DAILY NEEDED venlafaxine 150 mg capsule,extended release 24hr 150 mg PO DAILY Patient Comments: TAKE 1 CAPSULE BY MOUTH EVERY DAY gabapentin 600 mg tablet 600 mg PO TID albuterol sulfate 90 mcg/actuation HFA aerosol inhaler 1 - 2 puff INHALATION UD PRN (Reason: SHORTNESS OF BREATH/WHEEZING ) Rx Instructions: INHALE 1 TO 2 PUFFS BY MOUTH AND INTO THE LUNGS EVERY 4 TO 6 HOURS NEEDED Discontinued Sublocade 100 mg/0.5 mL solution, extended rel syringe See Rx Instructions .ROUTE .COMPLEX Hold Instructions: MD Ordered Patient Comments: Inject 1 syringe subcutaneously single dose Given per Vaibhav Shah [employer] in [employer] Lot #[id number] Exp 03/31 Rx Instructions: 100 mg subcutaneously every 4 weeks gabapentin 300 mg capsule Hold Instructions: MD Ordered Patient Comments: TAKE 1 CAPSULE BY MOUTH THREE TIMES DAILY Referrals / Follow Up: ALBERTO RODRIGUEZ [Other] ALBERTO RODRIGUEZ [Other] Disposition Disposition (needs filled in before D/C Order can be placed): Inpatient Rehab Unit/Facility Charges/Coding Visit Charges Inpatient E&M: 86102 Disch Hosp
--- NOTE | 2022-08-25 12:03 | PHA.DC.MR.R ---
Pharmacy [place] Med Reconciliation Pharmacy Service has performed discharge medication reconciliation for this patient. The patient's discharge medication list was reviewed for discrepancies and discrepancies were resolved. Medications at Discharge Home Medications clonidine HCl 0.1 mg tablet 0.1 mg PO TID PRN Anxiety 06/15/22 venlafaxine 150 mg capsule,extended release 24 hr 150 mg PO DAILY Mood Stabilizer 06/15/22 albuterol sulfate 90 mcg/actuation aerosol inhaler 1 - 2 puff inhalation UD PRN SHORTNESS OF BREATH/WHEEZING 08/21/22 gabapentin 600 mg tablet 600 mg PO TID NERVE PAIN 08/21/22
== END 2022-08-25 12:30 | DRG 773 ==
LOC: ED 18:36 → MS3 18:53
PROVIDERS: Admitting Provider Internal Medicine; Emergency Provider Emergency Medicine; Visit Provider Internal Medicine
DX: F11.13 Opioid abuse with withdrawal (principal); F14.90 Cocaine use, unspecified, uncomplicated; F41.9 Anxiety disorder, unspecified; M79.10 Myalgia, unspecified site; F32.A Depression, unspecified; Z72.0 Tobacco use; Z86.19 Personal history of other infectious and parasitic diseases
CPT/HCPCS: 36415; 80048; 80053; 80307; 82077; 83735; 84100; 84443; 85025; 86703; 99284; 99406